=== PATIENT | female | born 1985 | race Caucasian/White ===

== ENCOUNTER → 2018-01-17 14:39 | Outpatient (CLI) | payer BC, SELFPAY ==
[2018-01-17 17:38] LABS: Chlamydia Trachomatis by PCR Negative (Negative); Neisserai gonorrhoeae by PCR Negative (Negative); Probe Check PASS; Sample Adequacy Control PASS; Specimen Processing Control PASS
== END ==
PROVIDERS: Visit Provider Obstetrics & Gynecology
DX: Z11.3 Encounter for screening for infections with a predominantly sexual mode of transmission (principal)
CPT/HCPCS: 87491; 87591

== ENCOUNTER → 2018-02-06 15:43 | Outpatient (CLI) | payer BC, SELFPAY ==
[2018-02-06 17:52] LABS: Color, Urine Yellow (Yellow); Glucose, Dipstick Normal (Normal); Ketone-Dipstick Negative (Negative); Leukocyte Esterase-Dipstick 100 /ul (Negative); Nitrite-Dipstick Negative (Negative); Occult Blood-Urine 25 /ul (Negative); Protein-Dipstick Negative (Negative); Specific Gravity, Urine 1.015 (1.002-1.030); Urine Bilirubin Dipstick Negative (Negative); Urine Clarity Sl. Cloudy (Clear); Urine Urobilinogen Normal (Normal); Urine pH 6.5 (5.0 - 8.0)
[2018-02-06 18:08] LABS: Thyroid Stim Hormone (TSH) 3.51 uIU/mL (0.358-3.74)
[2018-02-06 18:48] LABS: HIV - WCH Non-Reactive (Nonreactive); Rubella IgG 19.4 IU/mL
[2018-02-06 19:12] LABS: Absolute Lymphocyte Count 2.23 X10^3/ul (0.83-4.51); Absolute Neutrophil Count 5.2 X10^3/uL (2.0-7.7); Basophil# 0.04 X10^3/uL; Basophil% 0.5 % (0-1); Eosinophils% 1.2 % (0-5); Hematocrit 36.9 % (37-47); Hemoglobin 12.2 g/dl (12.0-15.0); Lymphocyte # 2.23 X10^3/ul (4.0); Lymphocyte % 27.3 % (19-41); Mean Corp Hgb Conc 33.1 g/gl (32-36); Mean Corpuscular Hgb 29.5 pg (27.0-32.0); Mean Corpuscular Volume 89.1 fL (81-99); Mean Platelet Vol. 10.8 fl (6.2-12.0); Monocyte% 7.4 % (0-10); Neutrophil # 5.17 X10^3/uL (2.7-7.7); Neutrophil % 63.4 % (47-70); Platelet Count 377 K/mm3 (150-450); RBC Distribution Width CV 12.9 % (11.6-14.6); RBC Distribution Width SD 41.6 fl (35.1-43.9); Red Blood Count 4.14 M/mm3 (4.2-5.4); White Blood Count 8.2 K/mm3 (4.4-11.0)
[2018-02-06 19:22] LABS: POSITIVE COUNT NO; POSITIVE DIFFERENTIAL NO; POSITIVE MORPHOLOGY NO
[2018-02-08 11:13] LABS: HEPATITIS B SURFACE AG Negative (Negative); Hep C Antibodies <0.1 s/co ratio (0.0-0.9)
[2018-02-10 03:45] LABS: Prenatal RPR NONREACTIVE (NONREACTIVE)
== END ==
PROVIDERS: Visit Provider Obstetrics & Gynecology
DX: Z34.81 Encounter for supervision of other normal pregnancy, first trimester (principal)
CPT/HCPCS: 36415; 81002; 84443; 85025; 86703; 86762; 86803; 87340

== ENCOUNTER → 2018-05-30 13:38 | Outpatient (CLI) | payer BC, SELFPAY | PROVIDERS: Visit Provider Obstetrics & Gynecology | DX: N39.0 Urinary tract infection, site not specified (principal) | CPT/HCPCS: 87086; 87088 ==

== ENCOUNTER → 2018-06-02 15:19 | Outpatient (CLI) | payer BC, SELFPAY ==
[2018-06-02 16:50] LABS: Glucose Challenge Gest 1H 50g 117 mg/dL (70-140)
[2018-06-02 16:53] LABS: Hematocrit 33.6 % (37-47); Mean Corp Hgb Conc 32.7 g/gl (32-36); Mean Corpuscular Hgb 30.1 pg (27.0-32.0); Mean Corpuscular Volume 92.1 fL (81-99); Mean Platelet Vol. 10.3 fl (6.2-12.0); Platelet Count 296 K/mm3 (150-450); RBC Distribution Width CV 13.1 % (11.6-14.6); RBC Distribution Width SD 44.1 fl (35.1-43.9); Red Blood Count 3.65 M/mm3 (4.2-5.4); White Blood Count 7.8 K/mm3 (4.4-11.0)
[2018-06-02 16:54] LABS: Scan Indicated on CBC? Y/N NO
== END ==
PROVIDERS: PCP Obstetrics & Gynecology; Visit Provider Obstetrics & Gynecology
DX: Z34.82 Encounter for supervision of other normal pregnancy, second trimester (principal)
CPT/HCPCS: 36415; 82950; 85027; 86850

== ENCOUNTER → 2018-08-01 16:40 | Outpatient (CLI) | payer BC, SELFPAY ==
[2018-08-01 20:56] LABS: Group B Strep DNA By PCR Negative (Negative); Internal Control PASS; Probe Check PASS; Specimen Processing Control PASS
== END ==
PROVIDERS: Visit Provider Obstetrics & Gynecology
DX: Z36.85 Encounter for antenatal screening for Streptococcus B (principal)
CPT/HCPCS: 87081; 87653

== ENCOUNTER 2018-08-09 14:45 | Outpatient (CLI) | payer BC, SELFPAY ==
[2018-08-09 15:28] VITALS: BMI 36.5
[2018-08-09 17:41] LABS: Color, Urine Yellow (Yellow); Glucose, Dipstick Normal (Normal); Ketone-Dipstick Negative (Negative); Leukocyte Esterase-Dipstick 500 /ul (Negative); Nitrite-Dipstick Negative (Negative); Occult Blood-Urine Negative /ul (Negative); Protein-Dipstick Negative (Negative); Urine Bilirubin Dipstick Negative (Negative); Urine Clarity Clear (Clear); Urine Urobilinogen Normal (Normal)
--- NOTE | 2018-08-09 20:17 | OB.TRI.NOTE ---
History of Present Illness Date of Service: 08/09/18 Was patient seen by the physician?: No Reason For Visit: R/O LABOR Date of Service: 08/09/18 Final JES: 08/27/18 Final JES Source: US <20 weeks Gestational age: 37 Weeks and 3 Days History of Present Illness: Complains of irregular Vinay Lee type contractions. No signs of SROM no bleeding. Good movement at home. Allergies No Known Allergies Allergy (Unverified 01/19/18 17:46) Laboratory Studies: Laboratory Tests 08/09/18 Range/Units 17:10 Urine Color Yellow (Yellow) Urine Clarity Clear (Clear) Urine pH 8.0 (5.0 - 8.0) Ur Specific [place] 1.010 (1.002-1.030) Urine Protein Negative (Negative) mg/dl Urine Glucose (UA) Normal (Normal) mg/dl Urine Ketones Negative (Negative) mg/dl Urine Occult Blood Negative (Negative) /ul Urine Nitrite Negative (Negative) Urine Bilirubin Negative (Negative) mg/dL Urine Urobilinogen Normal (Normal) mg/dl Ur Leukocyte Esterase 500 H (Negative) /ul Physical Exam General: Alert, Oriented x3, Cooperative, No apparent distress Cardiovascular: Regular rate, Regular Rhythm Lungs: Clear to auscultation, Normal air movement Abdomen: Soft, Non Tender, Non-Distended, Appropriate for Gestational Age Neurological: Neuro grossly intact [employer]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 Signs of labor reviewed.
== END 2018-08-09 18:25 | disposition home or self-care (01) ==
LOC: WPOUT 14:46 → WP 14:46
PROVIDERS: Referring Provider Obstetrics & Gynecology; Visit Provider Obstetrics & Gynecology
DX: O47.1 False labor at or after 37 completed weeks of gestation (principal); Z3A.37 37 weeks gestation of pregnancy
CPT/HCPCS: 59050; 81002; 99218; G0378

== ENCOUNTER 2018-08-21 19:47 | Inpatient (IN) | payer BC, SELFPAY ==
[2018-08-21 20:25] VITALS: BMI 36.8
[2018-08-21] MEDS: Lactated Ringers 1,000 ML 50 ML IV (20:45)
[2018-08-21 21:09] LABS: Hematocrit 34.4 % (37-47); Hemoglobin 11.5 g/dl (12.0-15.0); Mean Corp Hgb Conc 33.4 g/gl (32-36); Mean Corpuscular Hgb 30.1 pg (27.0-32.0); Mean Corpuscular Volume 90.1 fL (81-99); Mean Platelet Vol. 11.3 fl (6.2-12.0); Platelet Count 249 K/mm3 (150-450); RBC Distribution Width CV 13.3 % (11.6-14.6); RBC Distribution Width SD 43.1 fl (35.1-43.9); Red Blood Count 3.82 M/mm3 (4.2-5.4); White Blood Count 6.9 K/mm3 (4.4-11.0)
[2018-08-21 21:18] LABS: Scan Indicated on CBC? Y/N NO
[2018-08-21 21:22] LABS: International Normalized Ratio 0.9; Prothrombin Time (Protime)PT. 12.4 SECONDS (11.7-14.9)
[2018-08-21 21:23] LABS: Partial Thromboplast Time 25.2 Seconds (24.1-36.2)
[2018-08-21] MEDS: miSOPROStol 25 MCG TABLET PO (21:23)
[2018-08-21 21:31] LABS: AST(SGOT) 27 U/L (15-37); Alanine Aminotransfer ALT/SGPT 19 U/L (13-56); Creatinine, Serum 0.61 mg/dL (0.55-1.02); EST Glomerular Filtration Rate 122 mL/min (>60); Est Glom Filt Rate - Afr Amer 148 mL/min (>60); Estimated Creatinine Clearance 125.09 ml/min; Uric Acid 5.4 mg/dL (2.6-6.0)
--- NOTE | 2018-08-22 00:32 | PCM.PN.BLA ---
Progress Note Induction at 39 2/7 wk for PIH AGA approx 8 # by emily ARCHIBALD. No PIH sx in office. LABOR CHART PROGRESS REVIEW Cytotec induction. 1st dose Cytotec listed as 2130 pm 08/21/18 BP 137/93 QS system. LABS: Plts 249 K. UA 5.4 AST/ALT WNL. Cr 0.6 Urine prot:cr pending EFM 120-130s mostly with period of inc FHR baseline to 140-150. Good variability. Accels to 170-190s. Occasional variable decel to 100-120 each lasting less than 20 sec. UCs very irregular. q 6+ minutes Cx in ofc /soft/hi/midposition. A/P: Cytotec induction. PIH 39 3/7 wk today. Continue Cytotec induction . Plan to AROM, and Pitocin prn after Cytotec.
[2018-08-22 00:46] LABS: Protein, Urine (Random) 29.5 mg/dL (<11.9); Protein:Creat Ratio 140 mg/g CRE (0-200)
[2018-08-22] MEDS: miSOPROStol 25 MCG TABLET PO (01:23)
[2018-08-22] MEDS: Mag Hydrox/Al Hydrox/Simeth 30 ML UDC PO (02:10)
--- NOTE | 2018-08-22 05:59 | PCM.PN.OB ---
Subjective: AROM with clear fluid noted. Electronic scalp electrode and intrauterine pressure catheter placed. Reactive heart tones. Will augment with Pitocin if needed starting at 7 AM. Cervix is 2+, 85% effaced, -1 station. Blood pressures okay. Anticipate spontaneous vaginal delivery. - Physical Exam Weight: 228 lb 6.382 oz Body Mass Index (BMI) 36.8 Laboratory Tests Past 24 Hrs 08/21/18 08/21/18 08/21/18 20:45 20:45 20:45 WBC 6.9 RBC 3.82 L Hgb 11.5 L Hct 34.4 L MCV 90.1 MCH 30.1 MCHC 33.4 RDW 13.3 RDW Differential 43.1 Plt Count 249 MPV 11.3 PT 12.4 INR 0.9 APTT 25.2 Creatinine Estim Creat Clear Calc Est GFR (MDRD) Af Amer Est GFR (MDRD) Non-Af Uric Acid AST ALT U Random Total Protein Urine Creatinine Protein/Creatinin Ratio Blood Type A NEGATIVE Antibody Screen NEGATIVE 08/21/18 08/22/18 20:45 00:15 WBC RBC Hgb Hct MCV MCH MCHC RDW RDW Differential Plt Count MPV PT INR APTT Creatinine 0.61 Estim Creat Clear Calc 125.09 Est GFR (MDRD) Af Amer 148 Est GFR (MDRD) Non-Af 122 Uric Acid 5.4 AST 27 ALT 19 U Random Total Protein 29.5 H Urine Creatinine 211.00 Protein/Creatinin Ratio 140 Blood Type Antibody Screen Medical Necessity - Tobacco Use Smoking Status: Never smoker Assessment/Plan All Active Problems Sinusitis (Acute) Pharyngitis (Acute)
--- NOTE | 2018-08-22 07:32 | PCM.PN.BLA ---
Progress Note 39 3/7 wk induction for PIH. Pro:cr ratio wnl. BPs remain a little labile Sitting on toilet Vomiting also IV to S/L Breathing heavily through UCs. EFM 110-120s overnight. with accels. 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 Scalp lead also fell out. A/P: Cytotec. AROM Pitocin on hold 12/02 to nursing staff not available to start this. Advised pt that she needs to reconsider epidural. Very early in labor progress and this uncomfortable. IV fluids bolus to be given , then epidural. Resume IUPC prn to document adequate UCs. Begin pitocin PRN.
--- NOTE | 2018-08-22 07:36 | PN_ITS ---
Progress Note 39 3/7 wk induction for PIH. Pro:cr ratio wnl. BPs remain a little labile Sitting on toilet Vomiting also IV to S/L Breathing heavily through UCs. EFM 110-120s overnight. with accels. UCs irregular and poor order picker q 2-6 mins or so CX; 2+ / 75 / IUPC place prior but this fell out. Scalp lead also fell out. A/P: Cytotec. AROM Pitocin on hold 12/02 to nursing staff not available to start this. Advised pt that she needs to reconsider epidural. Very early in labor progress and this uncomfortable. IV fluids bolus to be given , then epidural. Resume IUPC prn to document adequate UCs. Begin pitocin PRN.
[2018-08-22] MEDS: 0.9% Saline Lock 10 ML Syringe IV (08:32)
[2018-08-22] MEDS: Ondansetron 4 MG/2 ML Vial IV (08:48)
[2018-08-22] MEDS: Lactated Ringers 1,000 ML 50 ML IV (09:27)
[2018-08-22] MEDS: fentaNYL-bupivacaine (epidural) 100 ML BAG EPIDURAL (10:00)
[2018-08-22] MEDS: Oxytocin 30 units/NS 500 ml 30 UNITS/500 ML IV.SOLN 334 UNITS IV (13:00)
[2018-08-22 15:00] VITALS: BP 130/90; PULSE 68; RESP 16; TEMP 36.4
[2018-08-22] MEDS: Naproxen 250 MG Tablet PO (15:57)
[2018-08-22] MEDS: Acetaminophen 500 MG Tablet 1000 MG PO (18:33)
--- NOTE | 2018-08-22 20:39 | PCM.OB.VAG ---
Vaginal Delivery Maternal Presentation: Medically Indicated Induction - PIH 39 2/7 wk induction for PIH Method of Induction: Amniotomy, Cytotec Medical Reason for Induction: Gestational Hypertension Amniotic Membrane Rupture Type: Artificial Amniotic Fluid Description: Clear Final JES: 08/26/18 Gestational age: 39 Weeks and 3 Days Date of Procedure: 08/22/18 Pre-Operative Diagnosis: 39 3/7 wk induction Post-Operative Diagnosis: same. S/P Surgery/ Procedure Performed: Spontaneous Vaginal Delivery Type of Anesthesia: Epidural Description of Procedure: of a ferguson viable female over intact perineum to lacerations. Head delivered DOLLY. Nuchal cord x one reduced at delivery. Shoulders delivered easily. Infant to maternal abdomen with spont vigorous cry. Delayed cord clamping. COrd clamped x two and cut. Routine cord blood for typing collected. PP exam: bilateral first degree vaginal wall lacerations noted. First deg perineal laceration. All repaired under epidural to hemostatic and intact with 3-0 Vicryl . No other lacerations noted. Placenta delivered by spont expulsion, expression. 3V cord, normal appearing , intact with trailing membranes. EBL 350 cc Pt and infant tolerated delivery well. To recovery,s table contidion Ray Leesa counts correct x two. Presentation: Vertex, DOLLY Placental Delivery Description: Spontaneous, Expressed Placenta Disposition: [facility] Cord Vessel Description: 3 Vessels Nuchal Cord Compression: Without compression Cord Entanglement: Around neck x 1, loose Estimated Blood Loss: 350 Infant A gender: Female (1 minute): 9 (5 minute): 9 Episiotomy Description: None Laceration: Midline, Perineal Extension/lac, Vaginal Extension/lac, 1st degree Medications given after delivery: IV Pitocin Complications: None
--- NOTE | 2018-08-22 20:46 | PCM.DCVAG ---
Discharge Diet: No Restrictions Discharge Activity: May Shower, May Take a Tub Bath May resume sexual activity in: 4-6 weeks Additional Activity Instructions:: Nothing in the vagina for 4-6 weeks. You may return to work/school in 6 weeks. Additional Instructions: If you experience any of the following, contact your healthcare provider. Bleeding that soaks a pad every hour for 2 hours Fever 100.4 or higher Unrelieved abdominal pain Problems urinating (including inability to urinate or burning while urinating). Visual changes Severe headache Flu-like symptoms Pain or redness in one of both of your breasts Pain, warmth, tenderness or swelling in your legs, especially the calf area Frequent nausea and vomiting Symptoms of depression or anxiety If you experience any of the following, call 911 or go to the nearest Emergency Room. Chest pain Problems breathing Seizure activity Partial or complete paralysis of a body part, slurred speech, weakness or drooping of the face, or a sudden inability to walk or hold your balance Allergies/Adverse Reactions: Allergies No Known Allergies Allergy (Unverified 08/21/18 20:27) Medications to take at Discharge vitamin,calcium,lvandqtk-vsvk-ijryq acid tablet 1 tab PO QDAY 01/19/18 Cetirizine HCl [Zyrtec] 5 mg PO DAILY 08/09/18 Ranitidine [Zantac] 150 mg PO DAILY PRN PRN 08/09/18 Please Follow Up With: Shraddha Guy MD - [phone] When: Call to make an appointment with your doctor in 6 weeks. Primary Care Physician: Care Physician,No Primary [Primary Care Provider] - Test Results: Test results from this visit will be discussed in further detail at your follow-up appointment, if applicable. Proposed Discharge Date: 08/24/18
--- NOTE | 2018-08-22 20:47 | DCINST_ITS ---
Discharge Diet: No Restrictions Discharge Activity: May Shower, May Take a Tub Bath May resume sexual activity in: 4-6 weeks Additional Activity Instructions:: Nothing in the vagina for 4-6 weeks. You may return to work/school in 6 weeks. Additional Instructions: If you experience any of the following, contact your healthcare provider. * Bleeding that soaks a pad every hour for 2 hours * Fever 100.4 or higher * Unrelieved abdominal pain * Problems urinating (including inability to urinate or burning while urinating). * Visual changes * Severe headache * Flu-like symptoms * Pain or redness in one of both of your breasts * Pain, warmth, tenderness or swelling in your legs, especially the calf area * Frequent nausea and vomiting * Symptoms of depression or anxiety If you experience any of the following, call 911 or go to the nearest Emergency Room. * Chest pain * Problems breathing * Seizure activity * Partial or complete paralysis of a body part, slurred speech, weakness or drooping of the face, or a sudden inability to walk or hold your balance Allergies/Adverse Reactions: Allergies No Known Allergies Allergy (Unverified 08/21/18 20:27) Medications to take at Discharge vitamin,calcium,ienxwlar-ldvt-pzsko acid tablet 1 tab PO QDAY 01/19/18 Cetirizine HCl [Zyrtec] 5 mg PO DAILY 08/09/18 Ranitidine [Zantac] 150 mg PO DAILY PRN PRN 08/09/18 Please Follow Up With: Shraddha Guy MD - [phone] When: Call to make an appointment with your doctor in 6 weeks. Primary Care Physician: Care Physician,No Primary [Primary Care Provider] - Test Results: Test results from this visit will be discussed in further detail at your follow- up appointment, if applicable. Proposed Discharge Date: 08/24/18
[2018-08-22 20:50] VITALS: BP 129/87; PULSE 95; RESP 18; TEMP 36.4
[2018-08-23 00:50] VITALS: BP 146/91; PULSE 85; RESP 18; TEMP 36.1
[2018-08-23] MEDS: Naproxen 250 MG Tablet PO ×2 (01:28→13:15)
[2018-08-23 03:35] VITALS: BP 131/86; PULSE 85; RESP 18; TEMP 35.9
[2018-08-23] MEDS: Acetaminophen 500 MG Tablet 1000 MG PO (03:42)
[2018-08-23 05:47] LABS: Hemoglobin 10.5 g/dl (12.0-15.0); Mean Corp Hgb Conc 32.8 g/gl (32-36); Mean Corpuscular Hgb 29.8 pg (27.0-32.0); Mean Corpuscular Volume 90.9 fL (81-99); Mean Platelet Vol. 10.7 fl (6.2-12.0); Platelet Count 219 K/mm3 (150-450); RBC Distribution Width CV 13.6 % (11.6-14.6); RBC Distribution Width SD 44.1 fl (35.1-43.9); Red Blood Count 3.52 M/mm3 (4.2-5.4); White Blood Count 8.9 K/mm3 (4.4-11.0)
[2018-08-23 05:48] LABS: Scan Indicated on CBC? Y/N NO
--- NOTE | 2018-08-23 08:10 | PCM.PN.OB ---
Subjective: PPD#1 induction at 37 3/7 wk for PIH. Doing well. states very little sleep due to nursing. Minimal pain, no other concerns voiced. - Physical Exam General: Alert, Oriented x3, Cooperative, No apparent distress HEENT: Atraumatic Neck: Supple Abdomen: Soft - Fundus firm NT at 2 cm inferior to umbilicus. Neurological: Cranial nerves II-XII grossly intact Psych/Mental Status: Normal Affect Vital Signs Temp Pulse Resp BP 96.7 F L 85 18 131/86 H 08/23/18 03:35 08/23/18 03:35 08/23/18 03:35 08/23/18 03:35 Oxygen Delivery Method Room Air Weight: 103.6 kg Body Mass Index (BMI) 36.8 Intake and Output for Last 24 Hours 08/21/18 08/22/18 08/23/18 23:59 23:59 23:59 Output Total 2200 / 2200 Balance -2200 / -2200 Laboratory Tests Past 24 Hrs 08/22/18 08/23/18 18:00 05:40 WBC 8.9 RBC 3.52 L Hgb 10.5 L Hct 32.0 L MCV 90.9 MCH 29.8 MCHC 32.8 RDW 13.6 RDW Differential 44.1 H Plt Count 219 MPV 10.7 Screen NEGATIVE Baby's Blood Type O POSITIVE Baby's GAURANG NEGATIVE Medical Necessity - Tobacco Use Smoking Status: Never smoker Assessment/Plan All Active Problems Sinusitis (Acute) Pharyngitis (Acute) PPD#1 PIH induction 37 3/7 wks EGA Stable pp. Continue routine PP care. reviewed edema pp and BPs still a little labile, but not high enough to require any treatment. will likely dischg tomorrow to f/u in ofc in 2 wk for BP check.
[2018-08-23 09:20] VITALS: BP 132/82; PULSE 82; RESP 18; TEMP 36.7; O2SAT 98
[2018-08-23] MEDS: Prenatal Vits Tablet 1 TABLET PO (09:40)
[2018-08-23] MEDS: Loratadine 10 MG Tablet PO (09:41)
[2018-08-23 11:56] VITALS: BP 145/71; PULSE 83; RESP 18; TEMP 36.6; O2SAT 97
[2018-08-23 16:25] VITALS: BP 117/66; PULSE 90; RESP 16; TEMP 36.6; O2SAT 97
[2018-08-23 20:00] VITALS: BP 140/81; PULSE 103; RESP 18
[2018-08-24 02:00] VITALS: BP 138/85; PULSE 99; RESP 18
--- NOTE | 2018-08-24 02:12 | NURSING ---
Discussed cluster feeding with patient. Educated patient that infants need fed on cues. Patient stated she is trying to keep infant on schedule. Advised infant may want to nurse at different times. Patient voiced understanding.
--- NOTE | 2018-08-24 07:46 | PCM.PN.OB ---
Subjective: PPD#2 Induction for PIH 39 + wks. Tired. but sent baby to nursery for 3 hr last night to allow some rest. Baby not latching well on L breast. No other concerns voiced. Objective: Resting in chair - Physical Exam General: Alert, Oriented x3, Cooperative, No apparent distress HEENT: Atraumatic Neck: Supple Abdomen: Soft - Fundus firm NT at 1-2 cm inferior to umbilicus Neurological: Cranial nerves II-XII grossly intact Psych/Mental Status: Normal Affect Comment: Baby O positive. Pt A neg. RhoGAM given. Vital Signs Temp Pulse Resp BP Pulse Ox 97.8 F 99 18 138/85 H 97 08/23/18 16:25 08/24/18 02:00 08/24/18 02:00 08/24/18 02:00 08/23/18 16:25 Oxygen Delivery Method Room Air Weight: 103.6 kg Body Mass Index (BMI) 36.8 Intake and Output for Last 24 Hours 08/22/18 08/23/18 08/24/18 23:59 23:59 23:59 Output Total 2200 / 2200 Balance -2200 / -2200 Medical Necessity - Tobacco Use Smoking Status: Never smoker Assessment/Plan All Active Problems Sinusitis (Acute) Pharyngitis (Acute) PPD#2 PIH induction 37 3/7 wks EGA Stable pp. Dischg today. to f/u in ofc in 2 wk for BP check.
--- NOTE | 2018-08-24 07:49 | PCM.DC.SUM ---
Hospital Course and Treatment Summary of Care Provided: The patient is a 33 year old female at 37 3/7 wk presents for induction of labor 2/2 PIH. Cytotec to AROM Epidural placed per per request. BPs labile but no tx required. Delivered by ferguson female. RhoGAM given: baby O+. course uneventful Home on PPD #2 stable condition. - Physical Exam Vital Signs Temp Pulse Resp BP Pulse Ox 97.8 F 99 18 138/85 H 97 08/23/18 16:25 08/24/18 02:00 08/24/18 02:00 08/24/18 02:00 08/23/18 16:25 Oxygen Delivery Method Room Air Weight: 103.6 kg Body Mass Index (BMI) 36.8 Intake and Output for Last 24 Hours 08/22/18 08/23/18 08/24/18 23:59 23:59 23:59 Output Total 2200 / 2200 Balance -2200 / -2200 Discharge Diet: No Restrictions Discharge Activity: May Shower, May Take a Tub Bath May resume sexual activity in: 4-6 weeks Additional Activity Instructions:: Nothing in the vagina for 4-6 weeks. You may return to work/school in 6 weeks. Home Medications: Medications to take at Discharge vitamin,calcium,qhottawk-nhii-mchhd acid tablet 1 tab PO QDAY 01/19/18 Cetirizine HCl [Zyrtec] 5 mg PO DAILY 08/09/18 Ranitidine [Zantac] 150 mg PO DAILY PRN PRN 08/09/18 Primary Care Physician: Care Physician,No Primary [Primary Care Provider] - Please Follow Up With: Shraddha Guy MD - [phone] Medical Necessity - Tobacco Use Smoking Status: Never smoker Meaningful Use Info Meaningful Use Diagnoses (Choose all that apply): None applicable
[2018-08-24 09:20] VITALS: BP 139/83; PULSE 91; RESP 16; TEMP 36.8; O2SAT 99
[2018-08-24] MEDS: Loratadine 10 MG Tablet PO (10:35)
[2018-08-24] MEDS: Prenatal Vits Tablet 1 TABLET PO (10:35)
[2018-08-24 14:45] VITALS: BP 140/90; PULSE 80; RESP 14; TEMP 36.8; O2SAT 98
== END 2018-08-24 16:50 | disposition home or self-care (01) | DRG 807 ==
PROVIDERS: Obstetrics & Gynecology; Admitting Provider Obstetrics & Gynecology; Referring Provider Obstetrics & Gynecology; Visit Provider Obstetrics & Gynecology
DX: O13.4 Gestational [pregnancy-induced] hypertension without significant proteinuria, complicating childbirth (principal); Z37.0 Single live birth; Z3A.39 39 weeks gestation of pregnancy; O70.0 First degree perineal laceration during delivery; O69.82X0 Labor and delivery complicated by other cord entanglement, without compression, not applicable or unspecified
CPT/HCPCS: 59050; 82565; 82570; 84156; 84450; 84460; 84550; 85027; 85461; 85610; 85730; 86850; 86900; 90384; 99218; J7120; A4216; G0378; J2405; J2790

== ENCOUNTER 2018-12-07 13:40 | Emergency (ER) | payer OTHER, SELFPAY ==
[2018-12-07 13:41] VITALS: BP 133/97; PULSE 105; RESP 14; TEMP 36.8; O2SAT 94; BMI 29.0
--- NOTE | 2018-12-07 14:38 | CM.ED ---
SOCIAL WORK NOTE CASE CONFERENCED WITH ISAMAR FROM THE [facility]SELING [facility]. PT BROUGHT IN BY CRISIS. PER PRODUCTION PATTERN MAKER, PT WILL REQUIRE INPATIENT PSYCH HOSPITALIZATION. UPDATED PHYSICIAN. DARRIN KANG, [employer] HISTORY PROFESSOR, FROG CATCHER.
[2018-12-07 15:11] LABS: Absolute Neutrophil Count 5.3 X10^3/uL (2.0-7.7); Basophil# 0.05 X10^3/uL; Basophil% 0.7 % (0-1); Lymphocyte % 23.5 % (19-41); Mean Corp Hgb Conc 32.5 g/gl (32-36); Mean Corpuscular Hgb 27.9 pg (27.0-32.0); Mean Corpuscular Volume 85.8 fL (81-99); Mean Platelet Vol. 9.6 fl (6.2-12.0); Monocyte# 0.53 X10^3/uL; Monocyte% 6.9 % (0-10); Neutrophil # 5.27 X10^3/uL (2.7-7.7); Neutrophil % 68.6 % (47-70); POSITIVE COUNT NO; POSITIVE DIFFERENTIAL NO; POSITIVE MORPHOLOGY NO; Platelet Count 472 K/mm3 (150-450); RBC Distribution Width CV 13.7 % (11.6-14.6); RBC Distribution Width SD 42.3 fl (35.1-43.9); Red Blood Count 4.66 M/mm3 (4.2-5.4); White Blood Count 7.7 K/mm3 (4.4-11.0)
[2018-12-07 15:32] LABS: ALB/GLOB Ratio 1.1 RATIO (0.9-2.4); AST(SGOT) 12 U/L (15-37); Alanine Aminotransfer ALT/SGPT 21 U/L (13-56); Alkaline Phosphatase 113 U/L (45-117); Anion Gap 10 (5-15); BUN 8 mg/dL (7-18); BUN/Creat Ratio 12.7 RATIO (10-20); Calcium,Total 9.1 mg/dL (8.5-10.1); Chloride 103 mmol/L (98-107); Creatinine, Serum 0.63 mg/dL (0.55-1.02); EST Glomerular Filtration Rate 117 mL/min (>60); Est Glom Filt Rate - Afr Amer 141 mL/min (>60); Estimated Creatinine Clearance 121.12 ml/min; Globulin 3.8 g/dL (2.2-4.2); Glucose 91 mg/dL (74-106); Potassium 4.1 mmol/L (3.5-5.1); Protein, Total 7.8 g/dL (6.4-8.2); Sodium Level 138 mmol/L (136-145)
[2018-12-07 15:36] LABS: Pregnancy, Serum, hCG Quali. NEGATIVE Negative (0-9 Nonpreg)
--- NOTE | 2018-12-07 15:49 | ED.VISSUMM ---
- ER Visit Summary Date of Service: 12/07/18 Chief Complaint: Psychosis History of Present Illness: The patient is a 33 F with a underlying history of anxiety and possibly OCD. She presents for abnormal behavior. She was seen at an outside hospital earlier this week for panic attack symptoms. She was discharged to follow-up as an outpatient. Today she saw the counseling center and then. She was found to have psychotic symptoms and was referred to the emergency department. She was seeing her OB because she gave 3-1/2 months ago. The baby is doing well and her is helping to take care of the baby. The patient does say that she sees [facility]. She denies any suicidal or homicidal thoughts. Physical Examination: Afebrile and vital signs unremarkable except for a heart rate of 105. The patient is alert and oriented. Well kempt. No acute distress, however on discussion with her she does have abnormal thought content. Delusions. No suicidal or homicidal thoughts. Heart regular. Lungs clear. Skin appears normal. Test Results: Labs pending, but so far platelets 472, AST 12, TSH normal. negative. Emergency Department Course and Treatment: Patient was seen by the counselor in the emergency department. We are working on placement. She is medically cleared for transfer to a psychiatric facility. Treatment Plan: As above Disposition: Transfer Impression: 1. Psychosis This note was generated with [employer] dictation software. It may contain incorrect words, spelling, and punctuation that were not noted in review of the chart prior to signing ED Disposition - Plan for ED Patient: Referrals: Care Physician,No Primary [Primary Care Provider] -
[2018-12-07 15:55] LABS: Amphetamine Urine VISTA NEGATIVE (<1000 ng/mL); Barbiturate Urine VISTA NEGATIVE (< 200 ng/mL); Benzodiazepine Urine VISTA NEGATIVE (< 200 ng/mL); Cocaine Urine VISTA NEGATIVE (< 300 ng/mL); Ecstacy Urine VISTA NEGATIVE (< 500 ng/mL); Methadone Urine VISTA NEGATIVE (< 300 ng/mL); PCP Urine VISTA NEGATIVE (< 25 ng/mL); THC Urine VISTA NEGATIVE (< 50 ng/mL); Vista UDS pH Range 7
--- NOTE | 2018-12-07 15:59 | ED.DCSUM_ITS ---
- ER Visit Summary Date of Service: 12/07/18 Chief Complaint: Psychosis History of Present Illness: The patient is a 33 F with a underlying history of anxiety and possibly OCD. She presents for abnormal behavior. She was seen at an outside hospital earlier this week for panic attack symptoms. She was dis charged to follow-up as an outpatient. Today she saw the counseling center and then. She was found to have psychotic symptoms and was referred to the emergency department. She was seeing her OB because she gave 3-1/2 months ago. The baby is doing well and her is helping to take care of the baby. The patient does say that she sees [facility]. She denies any suicidal or homicidal thoughts. Physical Examination: Afebrile and vital signs unremarkable except for a heart rate of 105. The patient is alert and oriented. Well kempt. No acute distress, however on discussion with her she does have abnormal thought content. Delusions. No suicidal or homicidal thoughts. Heart regular. Lungs clear. Skin appears normal. Test Results: Labs pending, but so far platelets 472, AST 12, TSH normal. negative. Emergency Department Course and Treatment: Patient was seen by the counselor in the emergency department. We are working on placement. She is medically cleared for transfer to a psychiatric facility. Treatment Plan: As above Disposition: Transfer Impression: 1. Psychosis This note was generated with [employer] dictation software. It may contain incorrect words, spelling, and punctuation that were not noted in review of the chart prior to signing ED Disposition - Plan for ED Patient: Referrals: Care Physician,No Primary [Primary Care Provider] -
--- NOTE | 2018-12-07 16:55 | ED.RN ---
JAVIER LOWE WITH CRISIS PT IS BEING REFERRED TO [facility]
[2018-12-07 18:37] VITALS: BP 130/84; PULSE 100; RESP 16; O2SAT 98
== END 2018-12-07 19:59 ==
LOC: ED 15:56
PROVIDERS: Emergency Provider Emergency Medicine
DX: F29 Unspecified psychosis not due to a substance or known physiological condition (principal); F41.9 Anxiety disorder, unspecified; F32.9 Major depressive disorder, single episode, unspecified; E28.2 Polycystic ovarian syndrome
CPT/HCPCS: 80053; 80307; 80320; 84443; 84703; 85025; 99281; G0480

== ENCOUNTER → 2018-12-27 13:18 | Outpatient (CLI) | payer OTHER, SELFPAY ==
[2018-12-07 13:41] VITALS: BMI 29.0
[2018-12-27 18:10] LABS: Thyroid Stim Hormone (TSH) 3.01 uIU/mL (0.358-3.74)
== END ==
PROVIDERS: Visit Provider Obstetrics & Gynecology
DX: N92.6 Irregular menstruation, unspecified (principal)
CPT/HCPCS: 36415; 84439; 84443

== ENCOUNTER → 2020-04-30 16:04 | Outpatient (CLI) | payer OTHER, SELFPAY ==
[2019-10-17 12:57] VITALS: BMI 29.0
--- NOTE | 2020-04-30 16:18 | US_ITS ---
STUDY: FIRST TRIMESTER OBSTETRICAL ULTRASOUND REASON FOR EXAM: Female, 34 years old DATING LMP: 03/11/2020 TECHNIQUE: Transvaginal TECHNICAL QUALITY: Adequate. PRIOR ULTRASOUND: 08/15/2013 FINDINGS: There is visualization of a single gestational sac in a normal intrauterine position. The mean sac diameter (MSD) measures 1.38 cm, indicating an estimated gestational age (EGA) of 6 weeks, 1 days. The gestational sac shape is within normal limits. There is a visualized yolk sac. The yolk sac measures 2.6 mm. The placenta is non-visualized. There is visualization of a live embryo. The crown-rump length (CRL) measures 0.58 cm, indicating an estimated gestational age (EGA) of 6 weeks, 3 days. There is demonstrated cardiac activity with a heart rate of 111 bpm. The estimated gestation age (EGA) by LMP is 7 weeks, 1 days. The estimated date of delivery (JES) by LMP is 12/16/2020. The estimated gestation age (EGA) by US is 6 weeks, 3 days. The estimated date of delivery (JES) by US is 12/22/2020. The uterus measures 9.5 x 7.1 x 5.3 cm. There is no demonstrated uterine fibroid. The cervix is closed. The right ovary measures 4.5 x 2.1 x 2.4 cm.. There is a 7.0 x 4.4 x 5.9 cm right ovarian cyst. There is no visualized right adnexal mass or complex lesion. The left ovary measures 3.3 x 2.8 x 2.5 cm.. There is a 2.1 x 1.4 x 1.4 cm left ovarian cyst. There is no visualized left adnexal mass or complex lesion. There is no fluid in the cul de sac. There are prominent right adnexal vessels. US/Init OB < 14Wks US IMPRESSION: Single viable intrauterine of approximately 6 weeks 3 days gestational age by crown-rump length measurement. Bilateral ovarian cysts. Electronically Signed: Lamont Barroso MD at 19:07 EDT , Service support ,
== END ==
PROVIDERS: Referring Provider Specialist; Visit Provider Specialist
DX: Z36.87 Encounter for antenatal screening for uncertain dates (principal)
CPT/HCPCS: 76801

== ENCOUNTER → 2020-08-06 12:10 | Outpatient (CLI) | payer OTHER, SELFPAY ==
[2019-10-17 12:57] VITALS: BMI 29.0
--- NOTE | 2020-08-06 12:20 | US_ITS ---
STUDY: SECOND AND THIRD TRIMESTER OBSTETRICAL ULTRASOUND REASON FOR EXAM: Female, 34 years old anatomy LMP: 03/17/2020 TECHNIQUE: Transabdominal TECHNICAL QUALITY: Adequate. PRIOR ULTRASOUND: None. FINDINGS: There is a single intrauterine fetus. The fetus is in a transverse lie with the head on the maternal right side. There is demonstrated cardiac activity with a heart rate of 145 bpm. There is a normal amniotic fluid volume. The placenta is anterior in location and is not low lying. There are Grade 0 placental changes. The cervix measures 5.2 cm in length. The bilateral adnexal regions are normal. BIOMETRY: BPD: 5.1: 21 weeks, 3 days HC: 18.1: 20 weeks, 3 days AC: 16.8: 21 weeks, 5 days FL: 3.5: 21 weeks, 0 days CI: FL/BPD: FL/HC: FL/AC: HC/AC: age by current US: 20 weeks, 6 days. JES by current US: 12/18/2020. Estimated weight: 420 grams, +/- 62 grams, 89 %. age by prior US: 20 weeks, 2 days. JES by prior US: 12/22/2020. Age by LMP: 20 weeks, 2 days. JES by LMP: 12/22/2020. ANATOMY: Gender: Male Cranium: Normal lateral ventricles. Normal choroid plexus. Normal cerebellum. Normal cisterna magna. Normal face, nose and lips. Chest: Normal 4-chamber heart. Abdomen/Pelvis: Normal diaphragm. Normal stomach. Normal abdominal wall. Normal cord insertion. Normal 3 vessel cord. Normal kidneys. Normal bladder. Spine: Normal cervical spine. Normal thoracic spine. Normal lumbar spine. Normal sacrum. Extremities: Normal bilateral upper extremities. Normal bilateral lower extremities. US/OB Anatomy Scan IMPRESSION: Single live fetus in a transverse presentation. No demonstrated anatomic abnormality. Placenta is grade 0 and is not low-lying. Cervix is closed. age by current US: 20 weeks, 6 days. JES by current US: 12/18/2020. Estimated weight: 420 grams, +/- 62 grams, 89 %. Electronically Signed: Moises Magallon MD at 23:41 EDT , Service support ,
== END ==
PROVIDERS: Referring Provider Specialist
DX: Z36.3 Encounter for antenatal screening for malformations (principal)
CPT/HCPCS: 76805

== ENCOUNTER 2021-02-23 18:44 | Emergency (ER) | payer BC, SELFPAY ==
[2019-10-17 12:57] VITALS: BMI 29.0
[2021-02-23 18:45] VITALS: BP 148/97; PULSE 101; RESP 15; TEMP 36.3; BMI 31.4
[2021-02-23 19:49] LABS: Color, Urine Straw (Yellow); Glucose, Dipstick Normal (Normal); Ketone-Dipstick Negative (Negative); Leukocyte Esterase-Dipstick Negative /ul (Negative); Nitrite-Dipstick Negative (Negative); Occult Blood-Urine Negative /ul (Negative); Protein-Dipstick Negative (Negative); Specific Gravity, Urine 1.005 (1.002-1.030); Urine Bilirubin Dipstick Negative (Negative); Urine Clarity Clear (Clear); Urine Urobilinogen Normal (Normal)
[2021-02-23 19:50] LABS: Bacteria 0 SEEN /hpf (None Seen); Mucous, Urine 0 SEEN /hpf (<or=2+); Red Blood Cells-Urine 0 SEEN /hpf (0-5); White Blood Cells 0 SEEN /hpf (0-5)
[2021-02-23 19:56] LABS: Squamous Epithelial Cells - UA 0-5 SEEN /hpf (5-10)
[2021-02-23 20:22] LABS: Absolute Lymphocyte Count 2.24 X10^3/uL (0.83-4.51); Basophil# 0.06 X10^3/uL; Basophil% 0.7 % (0-1); Eosinophil# 0.03 X10^3/uL; Eosinophils% 0.4 % (0-5); Hematocrit 40.3 % (37-47); Hemoglobin 12.8 g/dL (12.0-15.0); Lymphocyte # 2.24 X10^3/ul (0.83-4.51); Lymphocyte % 27.9 % (19-41); Mean Corp Hgb Conc 31.8 g/dL (32-36); Mean Corpuscular Hgb 26.5 pg (27.0-32.0); Mean Corpuscular Volume 83.4 fL (81-99); Mean Platelet Vol. 10.3 fl (6.2-12.0); Monocyte# 0.66 X10^3/uL; Monocyte% 8.2 % (0-10); NRBC Flagged by Analyzer 0 % (0-5); Neutrophil % 62.4 % (47-70); Platelet Count 346 K/mm3 (150-450); RBC Distribution Width CV 15.7 % (11.6-14.6); RBC Distribution Width SD 47.5 fl (35.1-43.9); Red Blood Count 4.83 M/mm3 (4.2-5.4)
[2021-02-23 20:55] LABS: Internal QC Validated? YES +Cl - CLEAR BKGD; Pregnancy, Serum, hCG Quali. NEGATIVE Negative
[2021-02-23 21:01] LABS: Alcohol, Blood (Medical)-Serum < 3.0 mg/dL
[2021-02-23 21:03] LABS: Anion Gap 7 (5-15); BUN 9 mg/dL (7-18); BUN/Creat Ratio 11.6 RATIO (10-20); Chloride 105 mmol/L (98-107); Creatinine, Serum 0.78 mg/dL (0.55-1.02); EST Glomerular Filtration Rate 91 mL/min (>60); Est Glom Filt Rate - Afr Amer 110 mL/min (>60); Estimated Creatinine Clearance 96.04 ml/min; Glucose 87 mg/dL (74-106); Potassium 3.4 mmol/L (3.5-5.1); Sodium Level 138 mmol/L (136-145)
[2021-02-23 21:12] VITALS: RESP 14
[2021-02-23 21:12] LABS: Amphetamine Urine VISTA NEGATIVE (<1000 ng/mL); Barbiturate Urine VISTA NEGATIVE (< 200 ng/mL); Benzodiazepine Urine VISTA NEGATIVE (< 200 ng/mL); Cocaine Urine VISTA NEGATIVE (< 300 ng/mL); Ecstacy Urine VISTA NEGATIVE (< 500 ng/mL); Methadone Urine VISTA NEGATIVE (< 300 ng/mL); PCP Urine VISTA NEGATIVE (< 25 ng/mL); THC Urine VISTA NEGATIVE (< 50 ng/mL); Vista UDS pH Range 6
--- NOTE | 2021-02-23 21:38 | ED.VIS.PSYCH ---
History of Present Illness Chief Complaint: Mental Health Informant: Patient, Significant Other Narrative: Patient is a 35-year-old female with history of depression as well as psychosis presenting with increased paranoia. of the patient is the bedside. Apparently she is 10 weeks . She has been displaying increased paranoia and confusion. Yesterday she flushed her wedding rings down the toilet because she states she was afraid. Today she was running outside with the baby in her underwear. Patient felt that they were not safe at home and was trying to run safety. 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 She drove around for some time and ultimately went to her old jew. Patient follows with Naina through [facility]. She was previously on Zoloft but is no longer on it. After the of her older daughter she was hospitalized at [facility] for similar circumstances. Past Medical History - Allergies and Home Meds Allergies/Adverse Reactions: Allergies No Known Allergies Allergy (Verified 02/23/21 18:48) Primary Care Physician: Care Physician,No Primary [Primary Care Provider] - Past Medical History: - - Depression Surgical History: noncontributory Lives: Spouse/ Significant Other, With Family Smoking Status: Never smoker Review of Systems General: Denies: Chills, Fever, Sweats Eyes: Denies: Visual changes - bilaterally, Diplopia ENT: Denies: Rhinorrhea, Sore throat Cardiovascular: Denies: Chest pain, Palpitations Respiratory: Denies: Dyspnea, Cough, Dyspnea on exertion Gastrointestinal: Denies: Abdominal pain, Nausea, Vomiting, Diarrhea, Melena, Hematochezia Genitourinary: Denies: Dysuria, Hematuria, Frequency Musculoskeletal: Denies: Back pain, Extremity Pain Skin: Denies: Rash, Wounds Neurological: Denies: Headache, Weakness, Numbness Psych: Reports: Anxiety, - - Paranoia. Denies: Suicidal thoughts, Suicidal ideations Physical Exam Vital Signs/Narrative: Vital Signs Temp Pulse Resp BP 02/23/21 21:12 14 02/23/21 18:45 97.3 F L 101 H 15 148/97 H Inital Vital Signs reviewed: Yes General: Well nourished, Well developed Head: Normocephalic, Atraumatic Eyes: Perrl, EOMI ENT: Moist mucous membranes, No rhinorrhea Neck: Supple, Nontender Cardiovascular: Regular rate, Regular rhythm, No murmurs Respiratory: No distress, CTA bilaterally, Chest nontender Abdomen: Soft, Nontender, Nondistended, Normal bowel sounds Back: Nontender, Normal Inspection Extremities: Nontender, No Edema Skin: Normal color, No rash Neurological: Alert, Oriented x3, Cranial nerves II-XII grossly intact, Normal Strength, Normal Sensation Psych: Pressured Speech, Paranoid Ideation, - - Patient has slightly rambling speech with paranoia. She fixates on things not feeling safe. She does not appear to have good insight into her presentation.. Negative for: Hallucinations, Delusions Diagnostic/Tx/Re-eval Laboratory Data 02/23/21 02/23/21 02/23/21 19:40 20:05 20:05 WBC 8.0 RBC 4.83 Hgb 12.8 Hct 40.3 MCV 83.4 MCH 26.5 L MCHC 31.8 L RDW Std Deviation 47.5 H RDW Coeff of Robert 15.7 H Plt Count 346 MPV 10.3 Immature Gran % (Auto) 0.400 Neut % (Auto) 62.4 Lymph % (Auto) 27.9 Richardson % (Auto) 8.2 Eos % (Auto) 0.4 Baso % (Auto) 0.7 Absolute Neuts (auto) 5.0 Absolute Lymphs (auto) 2.24 Nucleated RBC % 0 Sodium 138 Potassium 3.4 L Chloride 105 Carbon Dioxide 26.0 Anion Gap 7 BUN 9 Creatinine 0.78 Estim Creat Clear Calc 96.04 Est GFR (MDRD) Af Amer 110 Est GFR (MDRD) Non-Af 91 BUN/Creatinine Ratio 11.6 Glucose 87 Calcium 9.0 Serum , Qual Urine Color Straw Urine Clarity Clear Urine pH 7.0 Ur Specific [place] 1.005 Urine Protein Negative Urine Glucose (UA) Normal Urine Ketones Negative Urine Occult Blood Negative Urine Nitrite Negative Urine Bilirubin Negative Urine Urobilinogen Normal Ur Leukocyte Esterase Negative Urine RBC 0 SEEN Urine WBC 0 SEEN Ur Squamous Epith Cells 0-5 SEEN Urine Bacteria 0 SEEN Urine Mucus 0 SEEN Urine Opiates Screen Urine Methadone Screen Ur Barbiturates Screen Ur Phencyclidine Scrn Ur Amphetamines Screen U Methamphetamin-MDMA U Benzodiazepines Scrn Urine Cocaine Screen U Cannabinoids Screen Ur Drug Screen Comment Ethyl Alcohol 02/23/21 02/23/21 02/23/21 20:05 20:05 20:10 WBC RBC Hgb Hct MCV MCH MCHC RDW Std Deviation RDW Coeff of Robert Plt Count MPV Immature Gran % (Auto) Neut % (Auto) Lymph % (Auto) Richardson % (Auto) Eos % (Auto) Baso % (Auto) Absolute Neuts (auto) Absolute Lymphs (auto) Nucleated RBC % Sodium Potassium Chloride Carbon Dioxide Anion Gap BUN Creatinine Estim Creat Clear Calc Est GFR (MDRD) Af Amer Est GFR (MDRD) Non-Af BUN/Creatinine Ratio Glucose Calcium Serum , Qual NEGATIVE Urine Color Urine Clarity Urine pH Ur Specific [place] Urine Protein Urine Glucose (UA) Urine Ketones Urine Occult Blood Urine Nitrite Urine Bilirubin Urine Urobilinogen Ur Leukocyte Esterase Urine RBC Urine WBC Ur Squamous Epith Cells Urine Bacteria Urine Mucus Urine Opiates Screen NEGATIVE Urine Methadone Screen NEGATIVE Ur Barbiturates Screen NEGATIVE Ur Phencyclidine Scrn NEGATIVE Ur Amphetamines Screen NEGATIVE U Methamphetamin-MDMA NEGATIVE U Benzodiazepines Scrn NEGATIVE Urine Cocaine Screen NEGATIVE U Cannabinoids Screen NEGATIVE Ur Drug Screen Comment Ethyl Alcohol < 3.0 Patient is medically cleared. She had increased paranoid behavior and is concerning for an acute psychosis. I do think she benefit from psychiatric evaluation. I do not think she is safe to go home as I fear for the safety of herself as well as her children. Patient will be pink slip. She will require emergent psychiatric evaluation. ED Disposition - Plan for ED Patient: Diagnosis: Paranoia Referrals: Care Physician,No Primary [Primary Care Provider] -
--- NOTE | 2021-02-23 22:07 | NURSING ---
CALLED CRISIS AT [phone]
[2021-02-23 23:32] VITALS: BP 144/102; PULSE 102; RESP 16; O2SAT 97
[2021-02-24 00:14] VITALS: RESP 16
--- NOTE | 2021-02-24 08:45 | ED.RN ---
SEE DOWNTIME DOCUMENTATION
== END 2021-02-24 02:45 | disposition home or self-care (01) ==
PROVIDERS: Emergency Provider Emergency Medicine
DX: F22 Delusional disorders (principal); F32.9 Major depressive disorder, single episode, unspecified
CPT/HCPCS: 80048; 80307; 81001; 82077; 84703; 85025; 87426; 99281; 99282

== ENCOUNTER 2021-03-09 09:45 | Outpatient (RCR) | payer BC, SELFPAY ==
--- NOTE | 2021-03-09 09:10 | BH.SGPN.GN ---
Behaviors/Verbalizations/Mental Status: [] Eye contact is good. Motor activity is appropriate. Appearance is casual. Speech is rapid. Mood is anxious. Affect is congruent. Thoughts are linear and logical. No evidence of psychosis. Reviewed daily check in sheet and no reports of suicidal ideations or intent. Client Response/Progress/Benefit: [] Pt was an active participant in group discussion on blame. Attentive. Provided appropriate feedback to peers. This was pt's first day in IOP. She shared her recent hospitalization for psychosis and the benefits of the facility that she went to. Shared that she feels better after discharge however continues to report challenges with restlessness, poor sleep, and anger. She reports that she had a brief hallucination Tuesday night which upset her. After awhile she did disclose this to her support rather than hide it. Her emotion for today is relaxed and less angry. No progress noted as this was pt's first day. Benefited from group support, encouragement, and feedback. Will continue in IOP to maintain stability and prevent decompensation. Narrative Note: []
--- NOTE | 2021-03-09 10:00 | BH.COMM_ITS ---
Communication Note - Communication with Client Communication Note: completed initial paperwork. No significant changes since pre-admission paperwork. Completed [place] [facility]icide Screening. Low risk. No SI since 2006
--- NOTE | 2021-03-09 10:15 | BH.SGPN.GN ---
Behaviors/Verbalizations/Mental Status: []Client alert and oriented, casually dressed and groomed. Eye contact good. Motor activity appropriate. Speech within normal limits. Affect congruent, mood anxious. Thoughts linear, logical, no signs of hallucinations or delusions. Client Response/Progress/Benefit: []Pt new to IOP group. Remained actively engaged in group discussion, taking notes, and listened attentively to others. Pt connected with quote stating that she could relate to the impact of listening to respond rather than understand in regard to addressing conflict. Expressed experiencing this from others at various points in own life. Reported she struggles with properly managing conflict because she tends to struggle with making decisions and not wanting to upset others. Pt stated anxiety and past negative experiences can impact conflict style as you may naturally end up avoiding as a result. Pt attentive and engaged during psychoeducation about different conflict styles (avoidant, accommodating, cooperative, and competing). Pt identified using accommodating a lot in her past but has been working to improve in this area and finds she is mor collaborative now. Notes struggling at times with being avoidant as well. Seemed to benefit from increased awareness of the different conflict styles. Pt to continue IOP to continue to promote use of healthy coping skills, improve anxiety management skills, and prevent decompensation. Narrative Note: []
--- NOTE | 2021-03-09 11:21 | BH.SGPN.GN ---
Behaviors/Verbalizations/Mental Status: []Client alert and oriented, casually dressed and neatly groomed. Eye contact good. Motor activity appropriate. Speech within normal limits. Affect congruent, mood euthymic and anxious. Thoughts linear, logical, no signs of hallucinations or delusions. Client Response/Progress/Benefit: []Client engaged in session AEB contributing input to discussion, providing personal examples, and taking notes throughout. Client providing feedback throughout discussion reviewing remaining conflict resolution styles. Expressed struggling to communicate with others when they come across as overly competing and can shut down as a result. Contributed to discussion on strategies for more effectively managing conflict in own life. Client identified wanting to be more consistent in use of collaborative approaches to conflict rather than just agreeing to avoid it. Shared she could begin working on doing so by improving upon his self-awareness and continue using her as support in doing so. Appeared to benefit from learning strategies to better manage conflict. Will continue IOP tx to continue to improve self-confidence, reduce depressive and anxious symptoms, and improve daily functioning. Narrative Note: []
--- NOTE | 2021-03-10 09:02 | BH.SGPN.GN ---
Behaviors/Verbalizations/Mental Status: []Pt eye contact good, casually dressed, motor activity appropriate, speech normal rate and tone, mood euthymic, congruent affect, thoughts linear and intact, no evidence of delusions or hallucinations. Patient indicated no suicidal ideation, plan or intent on daily symptom tracker. Client Response/Progress/Benefit: [] Patient engaged participant as evidenced by sharing thoughts and feelings and listening attentively to peers. Patient reported yesterday her mood was improved compared to the weekend. Patient stated she experienced anger on Tuesday and Tuesday night but felt more equipped in order to manage the anger. Patient reported she was able to do some deep breathing and talking with her to manage the anger. Patient reported while she is in IOP she would like to work on not being able to identify her anger triggers. Patient seemed to benefit from support from peers. Patient to continue IOP to stabilize moods, improve daily functioning, and prevent decompensation. Narrative Note: []
--- NOTE | 2021-03-10 10:10 | BH.SGPN.GN ---
Behaviors/Verbalizations/Mental Status: []Eye contact is good. Motor activity is appropriate. Appearance is casual. Speech is Appropriate. Mood is anxious, euthymic. Affect is congruent. Thoughts are linear and logical. No evidence of psychosis. Client Response/Progress/Benefit: [] Pt was an engaged participant in group discussion and activity AEB providing input and encouragement, as well as taking notes throughout. Worked with group to process quote, indicating that ?this is really timely because we are all taking a big step in doing the program and taking care of ourselves which deserves some credit?. Worked with group members to identify the benefits of setting goals which include: sense of accomplishment, builds self-esteem, increases motivation, holds us accountable, and helps to measure progress. Worked with peers to identify the barriers to setting goals or things that keep us from accomplishing goals. Pt identified personal barrier to achieving goals as perfectionistic thinking and taking on too much at once. Attentive during psycho-education on developing SMART (Specific, Measurable, Achievable, Realistic, Timely) goals. Benefited from education on the benefits of goal-setting and increased insight into skills to set realistic and attainable goals. Narrative Note: []
--- NOTE | 2021-03-10 11:10 | BH.SGPN.GN ---
Behaviors/Verbalizations/Mental Status: []Client alert and oriented, neatly dressed and groomed. Eye contact good. Motor activity appropriate. Speech within normal limits. Affect constricted, mood anxious. Thoughts linear, logical, no signs of hallucinations or delusions. Client Response/Progress/Benefit: []Client was engaged during discussion, did well to complete activity and process with the group. Client was willing to complete the worksheet in which she was challenged to develop a personal SMART goal. Client chose the goal to improve self-care by journaling for 30 minutes 2-3 times in the next week. Client stated this will benefit her as it will fill her ?cup? and lift her mind from the heaviness she carries. Client identified barriers which included: busy schedule, being too focused on others, forgetfulness, negative thinking, and guilt. Client worked with her partner in group to identify solutions for her barriers, and they were able to identify a solution for each barrier. Benefited from this group by developing a short-term SMART goal related to mental health. Client will continue IOP tx to prevent decompensation, improve overall functioning, and monitor moods. Narrative Note: []
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
--- NOTE | 2021-03-11 13:33 | BH.DR.ITP ---
Initial Treatment Plan Patient Information Visit Information: ADMISSION DATE: EXPECTED LOS: 4-6 weeks Problems/Symptoms Problem #1:: Mood instability: Leanne possibly to be followed by depression Symptom:: Grandiosity, decreased sleep, racing thoughts, history of hallucinations, delusions and disorganized behavior Symptom:: Fleeting feelings of depression over the past few days only. Problem #2:: Anxiety Symptom:: Rumination, worry, obsession tendencies, avoidance, hypervigilance, flashbacks.
--- NOTE | 2021-03-12 09:00 | BH.SGPN.GN ---
Behaviors/Verbalizations/Mental Status: []client alert and oriented, neatly dressed and groomed. Eye contact good. Motor activity restless. Speech within normal limits. Affect congruent, mood euthymic. Thoughts linear, logical, no signs of hallucinations or delusions. Reviewed client's symptom tracker, no SI, plan, or intent as of 03/12/21. Client Response/Progress/Benefit: []Client responded well to session, short check-in but positive. Client reports feeling capable this morning. Client stated she used opposite action and went to a mother's group and did a craft there. Client shared she did not want to go, but she was glad she got out of the house to practice self-care. Client also set a boundary via text message which was positive for client. Client shared she struggles with acceptance of her current functioning at times and client also struggles with setting boundaries. Appeared to benefit from group support and reflecting on her wins. Progress noted as client has been practicing coping skills outside of IOP, however, client can continue to work on reinforcing boundaries and practicing self-care. Will continue IOP tx to prevent decompensation, improve daily functioning, and increase self-care. Narrative Note: []
--- NOTE | 2021-03-12 11:15 | BH.SGPN.GN ---
Behaviors/Verbalizations/Mental Status: []Client alert and oriented, neatly dressed and groomed. Eye contact good. Motor activity appropriate. Speech within normal limits. Affect congruent, mood euthymic. Thoughts linear, logical, no signs of hallucinations or delusions. Client Response/Progress/Benefit: []Client responded well to session AEB providing input at times during discussion, engaging in activity, and listening attentively to peers. Client contributed during psychoeducation on the change process and different emotions in each stage of change. Client reports belief she is currently in between preparation and action stages of change. Client stated she feels more in the preparation stage by making small changes and steps towards where she wants to be in life. Client stated journaling is something she would like to try to help her get fully into stage 4 because self-expression and reflection will be beneficial. Appeared to benefit from identifying what stage of change client is in and identifying strategies to overcome barriers. Will continue IOP tx to stabilize moods, increase healthy coping and prevent decompensation.
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
--- NOTE | 2021-03-12 13:46 | BH.MTP_ITS ---
Master Treatment Plan - Patient Information Program Physician:: Dr. Kristen Lucas Primary Therapist:: Zofia VILLARREAL - Psychiatric Diagnoses Psychiatric Diagnoses:: Bipolar 1 disorder, manic, severe with psychotic features (F 31.21); social anxiety disorder (F 40.1); PTSD Diagnosis Code(s):: F - Estimated LOS Estimated LOS (in weeks):: 6 Problem/Goal #1 - Problem/Goal #1 Stated Goal:: Client will increase mood stability, reduce negative thinking, and improve daily functioning. Description of Barriers: Client has a history of trauma that continues to impact client. Client admits to negative core beliefs, perfectionistic tendencies, and difficulty setting boundaries due to fear of rejection. Functional Impact: Client is a 35-year-old female with a history of Bipolar disorder and depression. Client was admitted to [facility] from 02/24/21- 03/02/21 due to disorganized thoughts, hallucinations, temple preoccupation, and delusions. History of post- psychosis with a previous admission for similar symptoms after her first . Prior to admission, client was running outside naked with her child as client believed her was trying to kill her and was religiously preoccupied. Per 's report, client's symptoms started around 02/12/21 and got progressively worse. Since admission, client's symptoms have stabilized AEB no signs of disorganized speech, hallucinations or delusions. Client continues to report significant anxiety, shahnaz lt, obsessive thoughts, and ruminations. Client is functioning better now since discharge, but she is fearful of relapse. Goal Relevant Strengths/Supports: Client has insight to her symptoms, is intelligent, and has support from her and friends. Client also is connected with outpatient mental health services. - Objectives Objective #1 Stated Objective: Client will learn and utilize 2-3 healthy coping strategies to better manage depressive and bipolar symptoms as shown by reduced DSM-5 scores. Interventions: Through group and individual sessions, therapist will help client identify triggers and warning signs of depression and emotional dysregulation including emotional, physical, and behavioral changes. Therapist will teach client various coping skills to manage her symptoms and give client tangible resources to use to regulate emotions. Therapist will use cognitive restruct uring techniques and help client gain awareness of negative thoughts that reinforce depressive cycles. Therapist will help client incorporate behavioral activation and assist client in setting SMART goals. Discharge Criteria: Client will have met this goal when she can report learning and using at least 2 coping skills to manage depressive and bipolar symptoms and show a reduction in DSM-5 symptoms. Target Date: 04/27/21 Review Date: 04/06/21 Status: open Objective #2 Stated Objective: Client will identify at least 2-3 negative self-talk messages used to reinforce depression and replace thoughts with positive, realistic messages. Interventions: Therapist will help client identify distorted, negative beliefs about self and replace with more realistic, affirmative messages. Therapist will use CBT to help client increase insight to the connection between thoughts, emotions, and behaviors. Therapist will encourage client to practice thought challenging and self-compassion. Discharge Criteria: Client will have achieved this goal when can verbalize at least 2 negative self-talk messages and effectively replace those thoughts with affirmative messages. Target Date: 04/27/21 Review Date: 04/06/21 Status: open Problem/Goal #2 - Problem/Goal #2 Stated Goal:: Client will increase emotional regulation and reduce intensity and duration of anxiety symptoms. Description of Barriers: Client has a history of trauma that continues to impact client. Client admits to negative core beliefs, perfectionistic tendencies, and difficulty setting boundaries due to fear of rejection. Functional Impact: Client is a 35-year-old female with a history of Bipolar disorder and depression. Client was admitted to [facility] from 02/24/21- 03/02/21 due to disorganized thoughts, hallucinations, temple preoccupation, and delusions. History of post- psychosis with a previous admission for similar symptoms after her first . Prior to admission, client was running outside naked with her child as client believed her was trying to kill her and was religiously preoccupied. Per 's report, client's symptoms started around 02/12/21 and got progressively worse. Since admission, client's symptoms have stabilized AEB no signs of disorganized speech, hallucinations or delusions. Client continues to report significant anxiety, guilt, obsessive thoughts, and ruminations. Client is functioning better now since discharge, but she is fearful of relapse. Goal Relevant Strengths/Supports: Client has insight to her symptoms, is intelligent, and has support from her and friends. Client also is connected with outpatient mental health services. - Objectives Objective #1 Stated Objective: Client will identify 2-3 anxiety and irritability triggers and 2 calming coping skills to use to manage these symptoms as shown by decreased DSM-5 cross-cutting score. Interventions: Therapist will help client increase awareness of anxiety and crisis triggers and educate client on ways anxiety impacts overall health. Therapist will teach client various calming strategies to promote emotional regulation and reduction of anxiety. Therapist will assist client in identifying warning signs and teach client techniques to reduce, remove, or accept stressors to reduce anxiety. Therapist will discuss the importance of self-care, healthy relationships, and boundaries. Discharge Criteria: Client will have accomplished this goal when can report at least 2 triggers for anxiety and state using 2 calming strategies to manage symptoms. Additionally, client will have accomplished this goal when her DSM-5 cross-cutting scores show a decrease in anxiety and anger. Target Date: 04/27/21 Review Date: 04/06/21 Status: open Objective #2 Stated Objective: Client will identify 2-3 cognitive distortions that lead to rumination and learn 2-3 ways to manage these thoughts to better manage anxiety. Interventions: Therapist will provide education on the most common cognitive distortions and teach client the connection between thoughts, emotions, and feelings. Therapist will assist client in identifying, challenging, and replacing dysfunctional thoughts with positive, more realistic thoughts. Therapist will use CBT and DBT techniques to help client gain awareness of thinking errors and learn how to more effectively handle negative thoughts. Discharge Criteria: Client will have accomplished this goal when can identify at least 2 cognitive distortions and at least 2 coping skills to manage negative thoughts. Target Date: 04/27/21 Review Date: 04/06/21 Status: open
--- NOTE | 2021-03-16 09:00 | BH.SGPN.GN ---
Behaviors/Verbalizations/Mental Status: [] Eye contact is good. Motor activity is appropriate. Appearance is neat. Speech is Appropriate. Mood is euthymic. Affect is full. Thoughts are linear and logical. No evidence of psychosis. Reviewed daily check in sheet and no reports of suicidal ideations or intent. Client Response/Progress/Benefit: [] Pt was an active participant in group discussion. Attentive. Provided appropriate feedback. Emotion for today is magical. Shared that she has been completing daily goals which have been given to her via an shahnaz. She beleives that these small daily goals have been beneficial to her mental health and overall sense of accomplishment. She reported being more tired over the weekend and Wanting to sleep a lot. Able to see that this may be a good thing for her Bipolar as sleep is important. Progress noted per pt report. Benefited from group support, encouragement, and feedback. Will continue in IOP to prevent decompensation, learn and implement healthy skills, and stabilize mood. Narrative Note: []
--- NOTE | 2021-03-16 10:05 | BH.SGPN.GN ---
Behaviors/Verbalizations/Mental Status: []Client alert and oriented, neatly dressed and groomed. Eye contact good. Motor activity appropriate. Speech within normal limits. Affect congruent, mood euthymic. Thoughts linear, logical, no signs of hallucinations or delusions. Client Response/Progress/Benefit: []Pt was an active participant, taking notes and contributing to discussion. Connected with quote and shared forces in life are like ?opposites such as light and dark.? Attentive during psychoeducation. Pt worked with group to identify forces that can impact growth and overall mental health. Pt was doing a lot of nodding during the metaphor and helped the group identify internal and external forces. Group discussed examples of positive forces such as healthy coping skills and insight, as well as negative forces such as distorted thoughts. Pt benefited from increased awareness of the impact positive and negative forces can have on mental health and personal growth. Will continue IOP tx to prevent decompensation, increase self-awareness, and combat distortions. Narrative Note: []
--- NOTE | 2021-03-16 11:06 | BH.SGPN.GN ---
Behaviors/Verbalizations/Mental Status: []Client alert and oriented, casually dressed and groomed. Eye contact good. Motor activity appropriate. Speech WNL. Affect congruent, mood anxious and euthymic. Thoughts linear, logical, no signs of hallucinations or delusions. Client Response/Progress/Benefit: []Pt engaged during session AEB providing input, actively participating in activity, completing worksheet, and taking notes throughout. Group processed the activity and identified positive and negative forces impacting ability to complete the challenge. Pt was attentive during psychoeducation, asking questions throughout, and appeared to benefit from increased insight on the impact of own personal negative and positive forces on mental wellness. Identified personal positive forces as spirituality, encouragement from others, clear goals for self, and balance. Noted plans to increase positive impact of his self-care balance by being more willing to reach out to her supports and prioritize self-care activities such as journaling. Identified negative forces as: anxiety, negative self-talk, people-pleasing, and difficulties trusting others. Identified wanting to focus on reducing the need to people-please by working on improving boundaries and challenging herself to begin saying ?no? to things more regularly. Recommended continued IOP tx to increase skill application, continue to reduce anxiety and improve emotional stability, and prevent decompensation. Narrative Note: []
--- NOTE | 2021-03-17 09:00 | BH.SGPN.GN ---
Behaviors/Verbalizations/Mental Status: [] Pt eye contact good, casually dressed, motor activity appropriate, speech normal rate and tone, mood euthymic, congruent affect, thoughts linear and intact, no evidence of delusions or hallucinations. Patient indicated no suicidal ideation, plan or intent on daily symptom tracker. Client Response/Progress/Benefit: [] Patient receptive of session, engaged throughout AEB sharing thoughts and feelings with group. Identified emotion for the day as ?grateful?, noting this is due to appreciating the help her has provided over the past few days. Expressed this was specifically helpful last night as he woke up to feed their 3-month-old baby so client could catch up on sleep. Client discussed that lack of sleep has been a recent stressor and that she believes this has made he more emotionally labile. Discussed accepting her ?s help as a personal win as she often tries to do everything herself. Additional win noted as taking time to journal and take a bath for self-care. Receptive of and appeared to benefit from group encouragement and support. Patient to continue IOP to promote healthy change behaviors, continue to improve sx management and mood stability, and prevent decompensation. Narrative Note: []
--- NOTE | 2021-03-17 10:20 | BH.SGPN.GN ---
Behaviors/Verbalizations/Mental Status: []Client alert and oriented, neatly dressed and groomed. Eye contact good. Motor activity appropriate. Speech within normal limits. Affect congruent, mood euthymic. Thoughts linear, logical, no evidence of hallucinations or delusions. Client Response/Progress/Benefit: []Client responded well to session, attentive and contributing to discussion. Client worked cooperatively with the group to identify factors that contributed to how we define ourselves which included: upbringing, core beliefs, trauma, social media, past failures, and mental health. Group defined and discussed social and perceived stigma. Client reported she has experienced the impacts of perceived and social mental health stigma. Client shared labels she has heard regarding mental health such as being ?a liability.? Client also shared there was stigma associated with the mental health issues she experiences after giving . Client seemed to benefit from increased awareness of how mental health stigma can impact view of self. Client to continue IOP tx to further improve mood stability, increase self-care, and reduce negative thinking. Narrative Note: []
--- NOTE | 2021-03-17 15:19 | BH.MDN ---
Multi-Disciplinary Note - Note 45-min Individual Time Started:: 11:55 Date: 03/17/21 Purpose of session/treatment goals addressed:: To address goal #2 of client's tx plan as well as review homework. Eye Contact:: Good Motor Activity:: Appropriate Appearance:: Neat Speech:: Other - circumstantial Mood:: Euthymic Affect:: Congruent Thoughts:: Flight of ideas, No evidence of hallucinations/delusions noted Staff Interventions:: Therapist used active listening and provided psychoeducation when necessary. Therapist reviewed client's homework and gathered information on client's triggers and life experiences that have shaped client. Therapist provided gentle thought challenging. Therapist gave client self-reflection questions for journaling for homework. Client Response:: Client responded well to session, open to meeting with therapist. Client stated she has been trying to engage in more self-care. Client shared she got more sleep last night and has been journaling. Client stated her reflections from journaling have been helpful and client has realized more about her triggers. Client shared a recent anger outburst she had and triggers for anger. Discussed ways she can handle anger in the future such as deep breathing, taking breaks, and riding the wave. Client also shared that she tends to hole grudges and is passive in communication at times. This results in client blowing up and client would like to change this. Client receptive to practicing more assertive communication as well as boundary setting. Client also discussed how her childhood and mother have shaped client today. Client states belief some of her people pleasing, focus on image, and negative thinking stems from her mother's expectations of client. Client will continue to use journaling for self-reflection. Risks/Concerns:: Client denies any suicidal ideations, plan, or intent as of . Client reports sleep has improved and she is medication compliant. Progress Toward Goals/Plan:: Client is demonstrating progress towards tx goals AEB her self-report of increased self-care and sleep over the past few days. Client is continuing to gain insight on her symptoms, triggers, and negative thinking patterns. Client can continue to benefit from IOP tx to reduce anxiety, ruminations, negative thinking patterns, and anger. Will continue IOP tx and outpatient counseling. Time Stopped:: 12:40
--- NOTE | 2021-03-19 09:00 | BH.SGPN.GN ---
Behaviors/Verbalizations/Mental Status: [] Eye contact is good. Motor activity is appropriate. Appearance is neat. Speech is Appropriate. Mood is anxious. Affect is congruent. Thoughts are linear and logical. No evidence of psychosis. Reviewed daily check in sheet and no reports of suicidal ideations or intent. Client Response/Progress/Benefit: [] Pt was an active participant in group discussion. Attentive. Provided appropriate feedback. Emotion for today is lively. Mental health win was addressing an incident that upset her. Shared that during recent counseling sessions with therapist outside of [facility] something was said that upset her. She did not address it right away however later talked with . In the past she would have let this ruminate and cause resentment, however felt it would be more beneficial to communicate her emotions. Reports that was receptive. She plans to also talk with therapist about this. Also mental health win is that she is sleeping well. Feels relaxed today. Progress noted per pt report. Benefited from group discussion, feedback, and encouragement. Will continue in IOP to prevent decompensation, stabilize mood, and help transition back after psych admit. Narrative Note: []
--- NOTE | 2021-03-19 10:10 | BH.SGPN.GN ---
Behaviors/Verbalizations/Mental Status: []Client alert and oriented, neatly dressed and groomed. Eye contact good. Motor activity appropriate. Speech within normal limits. Affect constricted, mood agitated. Thoughts linear, logical, no signs of hallucinations or delusions. Client Response/Progress/Benefit: []Pt was an active participant in group discussion and completed group worksheet. Provided appropriate feedback and shared she struggles with managing anger and the physical symptoms that come with it. Group worked together to define anger and discussed the ways anger can impact one internally and externally. Pt reported that anger can be triggered by internal thoughts/feelings or external situations. Pt completed the iceberg exercise and identified emotions that tend to ?live under the surface? of anger. Pt also gained awareness of her typical responses to anger which included: having a short fuse, being defensive, lack of filter when speaking, and blaming others. Pt acknowledges that feeling invalidated, guilty, ashamed, and embarrassed often lead to anger. Benefited from group by increasing understanding of the impact of anger on mental health. Will continue IOP tx to prevent decompensation, increase emotional regulation skills, and improve daily functioning. Narrative Note: []
--- NOTE | 2021-03-19 11:12 | BH.SGPN.GN ---
Behaviors/Verbalizations/Mental Status: []Client alert and oriented, casually dressed and groomed. Eye contact good. Motor activity appropriate. Speech within normal limits. Affect congruent, mood euthymic. Thoughts linear, logical, no signs of hallucinations or delusions. Client Response/Progress/Benefit: []Pt was engaged throughout AEB participating in challenge activity and processing how skills used in activity could relate back to healthy skills for anger management in daily life. Did well to challenge initial frustrations and use creative problem solving skills with her supports during activity. Contributed as group brainstormed healthy coping skills for better managing anger which included: music, exercise, changing the temperature and environment, art, STOPP, and journaling. Pt noted use of music to help regulate emotions and calm down. Pt appeared to benefit from identifying different techniques to manage anger as well as gaining awareness of potential consequences of unmanaged anger. Pt selected the STOPP technique and enjoyable music as coping skills she would like to try to better regulate anger. Progress noted as pt reports increased use of supports rather than minimizing. Will continue IOP tx to promote the continued use of healthy coping skills, improve consistent mood stability, and further decrease irritability. Narrative Note: []
--- NOTE | 2021-03-23 09:00 | BH.SGPN.GN ---
Behaviors/Verbalizations/Mental Status: [] Eye contact is good. Motor activity is appropriate. Appearance is casual. Speech is Appropriate. Mood is euthymic. Affect is full. Thoughts are linear and logical. No evidence of psychosis. Reviewed daily check in sheet and no reports of suicidal ideations or intent Client Response/Progress/Benefit: [] Pt was an active participant in group discussion. Attentive. Provided appropriate feedback. Emotion for today is on-edge. Mental health wins include assertive communication and thought reframing over the weekend. Shared with the group that their was a miscommunication with her over the weekend. In the past she would have been angry and resentful over this and let it run my whole day. This weekend she was open with her frustrations and honest with her needs which was both beneficial and helpful. Also discussed another event in which she utilized opposite action and thought reframing which turned out to be very beneficial for her mood. Progress noted per pt report. Benefited from group support, encouragement, and feedback. Will continue in IOP to prevent decompensation, provide support, and stablize mood. Narrative Note: []
--- NOTE | 2021-03-23 10:14 | BH.SGPN.GN ---
Behaviors/Verbalizations/Mental Status: [] Client alert and oriented, casually dressed and groomed. Eye contact good. Motor activity appropriate. Speech within normal limits. Affect congruent, mood euthymic. Thoughts linear, logical, no evidence of delusions or hallucinations. Client Response/Progress/Benefit: []Client engaged throughout session AEB providing input when prompted, taking notes, and actively listening throughout. Appeared to connect with discussion on crisis and how unhealthy coping could result in a personal crisis. Group reflected on examples of what a crisis can be and the importance of having awareness of personal warning signs in order to prevent reaching crisis point. Shared that loss of custody of children could be a potential personal crisis trigger. Group identified potential warning signs for crisis and client completed the personal warning signs worksheet. Client identified personal crisis warning signs to include: isolation, overscheduling, starting tasks and not completing them, and increased impulsiveness. Client reports they can tell when struggling if feeling more ?within myself? and having difficulties in engaging with others. Client benefited from increasing awareness of what leads to crisis and personal warning signs. Client will continue IOP tx to prevent decompensation, continue to promote healthy change behaviors, and increase healthy coping skills. Narrative Note: []
--- NOTE | 2021-03-23 11:15 | BH.SGPN.GN ---
Behaviors/Verbalizations/Mental Status: []Client alert and oriented, casually dressed and groomed. Eye contact fair. Motor activity appropriate. Speech within normal limits. Affect congruent. Mood euthymic. Thoughts linear, logical, no signs of hallucinations or delusions. Client Response/Progress/Benefit: []Client responded well to session as evidenced by client listening attentively to others and providing strategies during discussion. Client identified her warning signs for crisis and gained further awareness of earliest warning signs. Client created a crisis action plan to help client better manage warning signs for crisis. Client?s action plan for overscheduling included: have partner help keep her accountable, write down when she says no to someone or something, fill time with family, don't focus on blocking schedule with events, and listen to music.. Client appeared to benefit from creating a crisis action plan and increasing self-awareness. Client to continue IOP tx to continue use of healthy coping, challenge distorted thoughts and prevent decompensation.
--- NOTE | 2021-03-24 10:16 | BH.SGPN.GN ---
Behaviors/Verbalizations/Mental Status: []Client alert and oriented, casually dressed and groomed. Eye contact good. Motor activity appropriate. Speech within normal limits. Affect congruent, mood euthymic and anxious. Thoughts linear, logical, no signs of hallucinations or delusions Client Response/Progress/Benefit: [] Client engaged in session AEB client providing input and personal examples, taking notes, and listening attentively to peers. Client shared connecting with the importance of setting boundaries, noting ?I think of boundaries as a fence for our emotions, ect.?. Client assisted group with identifying barriers to setting healthy boundaries. These included: fear of abandonment, fear of being vulnerable, self-doubt, discomfort, and feeling it?s ?too hard?. Shared a personal barrier she has experienced in the past is struggling with not wanting to upset or let others down. Listened and provided examples during discussion on different types of boundaries. Provided example of intellectual as ?Communicating intentions before acting on them?. Client seemed to benefit from increased awareness of how boundaries impact mental health. Will continue IOP tx to improve use of healthy coping, improve boundary setting skills, maintain stability, and reduce mental health sx. Narrative Note: []
--- NOTE | 2021-03-24 11:19 | BH.SGPN.GN ---
Behaviors/Verbalizations/Mental Status: []Client alert and oriented, neatly dressed and groomed. Eye contact good. Motor activity appropriate. Speech within normal limits. Affect congruent, mood euthymic and anxious. Thoughts linear, logical, no signs of hallucinations or delusions. Client Response/Progress/Benefit: []Client responded well to session, connecting with peers and receptive to supportive statements. Client engaged during psychoeducation on the different boundary styles. Client reported she has porous boundaries as client shared she struggles to say no and often puts more values on others? opinions. Client stated she is putting effort into being more flexible with her boundaries which has ?freed me up to consider alternative things.? Client participated in brainstorming strategies to improve boundary setting. Client wants to work on the strategy of asking herself what saying no frees up in her schedule. Seemed to benefit from increased awareness of how current boundary style impacts mental health and learning different strategies to improve boundary style. Client to continue IOP tx to monitor mood, increase healthy coping skills, and improve daily functioning. Narrative Note: []
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
--- NOTE | 2021-03-25 09:02 | BH.SGPN.GN ---
Behaviors/Verbalizations/Mental Status: []Client alert and oriented, casually dressed and groomed. Eye contact good. Motor activity appropriate. Speech within normal limits. Affect congruent, mood anxious. Thoughts linear, logical, no signs of hallucinations or delusions. Reviewed client?s symptom tracker, no risk for suicidal ideation reported as of 03/25/21 Client Response/Progress/Benefit: [] Client responded well to session, attentive and engaged. Client reports feeling apprehensive this morning, indicating ?I wish I could say something more positive but that wouldn?t be fully honest?. Expressed her apprehension is due to current stressor involving writing a letter at a friend?s request. Shared using her supports for encouragement and knows doing the ?anxious thing? will be helpful as well. Identified current positives as continuing to use the coping skills she has learned such as listening to music to prevent sx escalation, additional positive was meeting with her to address ways to baby proof the house at the expressed concern of her [id number]. Identified coping skills she has been using to include opposite action, positive self-talk, reaching out to supports, perspective challenging, and listening to music. Appeared to benefit from reflecting on progress. Will continue IOP tx to promote gains, further improve mood stability, and improve daily functioning. Narrative Note: []
--- NOTE | 2021-03-25 10:12 | BH.SGPN.GN ---
Behaviors/Verbalizations/Mental Status: []Client alert and oriented, casually dressed, hygiene appeared to be tended to. Eye contact fair. Motor activity appropriate. Speech within normal limits. Affect congruent. Mood euthymic. Thoughts linear, logical, no signs of hallucinations or delusions. Client Response/Progress/Benefit: []Pt engaged participant AEB providing input at times during session and listening attentively to others. Group identified not engaging in self-care can result in increased irritability, increased stress, increased depression, increased anger, using more unhealthy coping, and larger wave of lows and highs. Pt reported sometimes she believes that self-care takes too much work. Pt worked with group to identify benefits of self-care which includes: improve mental health, increased confidence, increased self-esteem, increased productivity, be a good example to others and able to help others more effectively. Pt seemed to benefit from increased awareness of the benefits of self-care and common barriers to self-care. Pt to continue IOP to continue use of healthy coping, challenge distorted thoughts and prevent decompensation. Narrative Note: []
--- NOTE | 2021-03-25 11:12 | BH.SGPN.GN ---
Behaviors/Verbalizations/Mental Status: []Client alert and oriented, neatly dressed and groomed. Eye contact good. Motor activity appropriate. Speech within normal limits. Affect full, mood anxious. Thoughts linear, logical, no signs of hallucinations or delusions. Client Response/Progress/Benefit: []Client engaged participant AEB client taking notes during discussion and listened attentively to peers. Participated in group discussion on the various areas of self-care, benefits, and types of self-care activities for each area. Client completed worksheet in which client identified current self-care practices and what self-care activities client wants to start using. Client reported wanting work on social self-care as client believes this will help her interact with others and ?sit with uncomfortable? feelings. Client plans to work on this during a playdate this Tuesday and shared she will refrain from cleaning up the mess. Client shared this will help her be more present and sit with anxiety. Appeared to benefit from reflecting on the area of self-care client can improve and setting a small goal. Will continue IOP tx to promote mood stability, increase self-care, and improve emotional regulation skills. Narrative Note: []
--- NOTE | 2021-03-26 06:50 | BH.COMM ---
Communication Note - Communication with Client Communication Note: Spoke with client's outpatient therapist, Naina, regarding client's IOP progress and treatment.
== END 2021-03-30 23:59 ==
LOC: BHIOP 09:45
PROVIDERS: Referring Provider Psychiatry & Neurology Psychiatry; Visit Provider Psychiatry & Neurology Psychiatry
DX: F30.2 Manic episode, severe with psychotic symptoms (principal); F41.8 Other specified anxiety disorders; F43.10 Post-traumatic stress disorder, unspecified; Z79.899 Other long term (current) drug therapy; Z78.0 Asymptomatic menopausal state; E03.9 Hypothyroidism, unspecified
CPT/HCPCS: H0035; 90834; 90837; 90853

== ENCOUNTER 2021-03-31 09:00 | Outpatient (RCR) | payer BC, SELFPAY ==
--- NOTE | 2021-03-31 09:00 | BH.SGPN.GN ---
Behaviors/Verbalizations/Mental Status: [] Eye contact is good. Motor activity is appropriate. Appearance is neat. Speech is Appropriate. Mood is euthymic. Affect is full. Thoughts are linear and logical. No evidence of psychosis. Reviewed daily check in sheet and no reports of suicidal ideations or intent. Client Response/Progress/Benefit: [] Pt was an active participant in group discussion. Attentive. Provided appropriate feedback. Daily symptom tracker notes 11/04 for depression. Emotion for today is encouraged. She shared some recent family stressor which she was able to problem-solve though. Also asked for group feedback regarding returning to social media. She had been off social media for 5 months and over the weekend after taking some pictures decided to post them. This led to downloading the shahnaz again and re-engaging. Was open to feedback and ultimately decided that being off social media has been more beneficial than utilizing it. Notes that she would spend several hours on it and was less engaged with family. Progress noted. Benefited from group discussion, support, and encouragement. Will continue in IOP to maintain gains and prevent decompensation. Narrative Note: []
--- NOTE | 2021-03-31 10:10 | BH.SGPN.GN ---
Behaviors/Verbalizations/Mental Status: [] Eye contact is good. Motor activity is appropriate. Appearance is casual. Speech is Appropriate. Mood is euthymic. Affect is full. Thoughts are linear and logical. No evidence of psychosis. Client Response/Progress/Benefit: [] Pt was an active participant in group discussion and activity. Attentive during psychoeducation on factors that build resiliency. Worked with peers to to define resiliency in which they settled on bouncing back from difficult times. Along with peers also identified what could impact resilience which included; environment, upbringing, family MH beliefs, poverty, support, trauma, never learning coping skills, and emotions. Insight in how group experiential activity in which therapist induced chaotic environment impacted resilience and how group overcame it. Pt benefited by increasing awareness on the role of resilience in mental health and factors that can help build resiliency. Will continue in IOP to prevent decompensation, increase healthy coping, and stablize mood. Narrative Note: []
--- NOTE | 2021-03-31 11:14 | BH.SGPN.GN ---
Behaviors/Verbalizations/Mental Status: []Client alert and oriented, neatly dressed and groomed. Eye contact good. Motor activity appropriate. Speech within normal limits. Affect congruent, mood euthymic. Thoughts linear, logical, no signs of hallucinations or delusions. Client Response/Progress/Benefit: []Client responded well to session, engaged and participated throughout discussion. Client participated in the discussion of how each resiliency component can help increase personal resiliency. Client worked with group to identify ways to practice each of the resiliency traits reviewed. Client shared belief client has the resiliency trait of moving towards her goals which has helped client get back into exercising. Client would like to continue working on this resiliency trait as client wants to get back into running eventually. Appeared to benefit from reflecting on already existing resiliency traits and learning how to strengthen resilience. Will continue IOP tx further improve mood stability and improve daily functioning. Narrative Note: []
--- NOTE | 2021-04-01 09:00 | BH.SGPN.GN ---
Behaviors/Verbalizations/Mental Status: []Client alert and oriented, neatly dressed and groomed. Eye contact good. Motor activity appropriate. Speech within normal limits. Affect congruent, mood euthymic. Thoughts linear, logical, no signs of hallucinations or delusions. Reviewed client?s symptom tracker, no risk for suicidal ideation, plan, or intent as of 04/01/21 Client Response/Progress/Benefit: []Client responded well to session, attentive and providing supportive statements. Client reports feeling serene this morning. Client shared she has been letting her supports help her rather than trying to do everything on her own. Client stated she got to take a nap yesterday, went on a walk, and talked with her father. Client shared she is currently worried about her increased fatigue as client felt like she could have fallen asleep behind the wheel. Client will meet with the psychiatrist today and in the meantime, client has a support driving her to IOP. Appeared to benefit from connecting with peers and seeing psychiatry today. Progress noted in client's application of coping skills. Will continue IOP tx to prevent decompensation, monitor medication, and increase healthy coping skills. Narrative Note: []
--- NOTE | 2021-04-01 10:10 | BH.SGPN.GN ---
Behaviors/Verbalizations/Mental Status: []Client alert and oriented, casually dressed and groomed. Eye contact good. Motor activity appropriate. Speech within normal limits. Affect congruent, mood euthymic. Thoughts linear, logical, no signs of hallucinations or delusions. Client Response/Progress/Benefit: []Client active participant as evidenced by providing input throughout discussion. Helped group identify what can impact automatic thoughts including: experience, learned behaviors, skills we learn, environment, mood, pain, hungry, lonely and tired. Client reported in the past she has invented scenarios about other people which led to untrustworthiness and destruction of relationship. Client connected with the discussion about how distorted thought patterns can reinforce mental health symptoms. Client reported sometimes she can jump to conclusions about situations with her which can cause unnecessary conflict. Appeared to benefit from increasing awareness of cognitive distortions and how they can impact emotions and behaviors. Will continue IOP tx to prevent decompensation, continue use of healthy coping skills, and reduce negative thinking.
--- NOTE | 2021-04-01 11:15 | BH.SGPN.GN ---
Behaviors/Verbalizations/Mental Status: []Client alert and oriented, casually dressed and groomed. Eye contact good. Motor activity appropriate. Speech within normal limits. Affect congruent, mood euthymic. Thoughts linear, logical, no apparent hallucinations and delusions. Client Response/Progress/Benefit: [] Client was an active participant AEB client providing input throughout session and completing group activity. Attentive during psychoeducation and additional discussion on cognitive distortions. Client engaged while group practiced reframing example thoughts on the board. Client then worked within their small group to identify potential thought-challenge strategies for specific types of distortions. Client shared they struggle with personalization and identified radical acceptance and asking supports their point of view as skills she would like to use to combat this distortion. Client seemed to benefit from reframing distorted thoughts and brainstorming several skills for challenging distortions. Will continue IOP tx to prevent decompensation and continue to improve mood stability. Narrative Note: []
--- NOTE | 2021-04-01 11:59 | PCM.BH.PN ---
Progress Note Progress Note: History of Present Illness/Interim History: [] The patient is a 35-year-old female who is seen in follow-up at the [facility] behavioral health IOP program. I last saw the patient 3 weeks ago and at that time no medication changes were made. The patient has been doing well in the IOP program and feels she has made progress and learned valuable skills to help manage her mental health issues. The staff also feels like the patient has made good progress. She states that her mood is euthymic or normal and she is not having any manic or psychotic symptoms. She does feel somewhat tired the last few days and on days when she feels tired she does not drive. Her infant is now about 4 months old and is doing well but still sometimes gets up at night once or twice and she breast-feeds. The patient has had 1 visit with her new outpatient psychiatrist already and felt that this is a good fit. Her sleep is very good and she gets sometimes 8 hours a night depending on how her 4-month-old sleeps. She is tolerating her Abilify well but does notice a dry mouth when she first gets up in the morning. She is trying to keep regular sleep-wake hours as much as is possible with 2 young children. Breast-feeding is going well for her and she feels her is helping her regulate herself also. She feels that she needs to decrease the commitments that she had in the past and felt that she was doing too much so he she is currently doing this. She has not any longer doing her starting multiple projects like she was when she was manic. 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 She denies any hallucinations, delusions, symptoms of layla, symptoms of depression. She denies passive thoughts of , suicidal or homicidal ideation. Current Psychiatric Medications: [] Abilify 15 mg p.o. nightly (since February 2021); melatonin 3 mg p.o. nightly. Mental Status Examination: [] Patient is a 35-year-old 4 months female who is seen wearing a mask due to the pandemic and is casually dressed and groomed with good hygiene. She has no psychomotor agitation or retardation. Eye contact is good and speech is normal rate and rhythm and fluent with no pressure. Mood is euthymic. Affect is full and normal. Thought process is goal-directed and organized. Thought content: There is no evidence of hallucinations, delusions, thoughts of , suicidal ideation, or homicidal ideation. Reality testing is intact. Impulsivity is low. Judgment is intact. Insight: Good. Diagnoses: [] Independence I: [] Bipolar 1 disorder, manic, severe with psychotic features (resolving); social anxiety disorder; PTSD Independence II: [] Deferred Independence III: [] 4 months , hypothyroidism Independence IV:[]] Primary support issues Plan: [] The patient will continue the IOP program at [facility] as the structure, support, education, and group therapy have benefited her and will hopefully prevent worsening of her symptoms or relapse. She felt safe during the interview and if it anytime she does not feel safe she will let us know or go to the emergency room. No medication changes were made today. The patient will follow up with her outpatient psychiatrist and I will follow her while she is in the IOP program. The risks, options, complications and possible side effects of the medications were again discussed with the patient and she understands and accepts these.
--- NOTE | 2021-04-02 10:10 | BH.SGPN.GN ---
Behaviors/Verbalizations/Mental Status: [] Eye contact is good. Motor activity is appropriate. Appearance is neat. Speech is Appropriate. Mood is euthymic. Affect is full. Thoughts are linear and logical. No evidence of psychosis. Client Response/Progress/Benefit: [] Pt was an active participant in group discussion and activity. Insight during activity that finding positive aspects of a picture was more challenging than identifying negatives. Pt along with peers were able to identify what could impact one's perspective which included; upbringing, core beliefs, environment, relationships, and sleep. Group was able to identify how a negative perspective could impact progress in mental health treatment leading to beliefs such as; I will not get better, nobody understands me, apathy, withdrawing, irritability, catastrophizing, disqualifying positives, focusing on flaws, personalizing, labeling, focusing on negatives, and convincing one to quit. Pt was able to identify a perspective that has been helpful for her which was understanding that changes purpose and goals id OK and being flexible is not a failure . Benefited from group by increasing awareness on the role of perspective in mental health wellness. Will continue in IOP to prevent decompensation and increase healthy coping. Narrative Note: []
--- NOTE | 2021-04-02 10:17 | BH.SGPN.GN ---
Behaviors/Verbalizations/Mental Status: []Client alert and oriented, neatly dressed and groomed. Eye contact good. Motor activity appropriate. Speech within normal limits. Affect congruent, mood euthymic. Thoughts linear, logical, no signs of hallucinations or delusions. Client Response/Progress/Benefit: []Pt engaged participant AEB pt providing input throughout session, listening attentively to peers and completing strengths exploration handout. Pt did struggle to identify strengths which included gratitude, love of learning, and confidence. Pt stated these strengths will help client?s mental health recovery by helping pt stay ?rooted? in the moment, growth and learn, and finding strength in her values and opinions. Pt seemed to benefit from increased awareness of personal strengths and improved understanding how perspective can impact view of self. Pt is to continue IOP tx to improve mood stability, further increase self-awareness, and increase self-care. Narrative Note: []
--- NOTE | 2021-04-02 14:21 | BH.MDN_ITS ---
Multi-Disciplinary Note - Note 45-min Individual Time Started:: 09:11 Date: 04/02/21 Purpose of session/treatment goals addressed:: To address problem #2 of client's tx plan. Another goal was to provide psychoeducation on maladaptive coping skills and responses to childhood trauma. Eye Contact:: Fair Motor Activity:: Appropriate Appearance:: Neat Speech:: Tangential Mood:: Euthymic, Anxious Affect:: Congruent Thoughts:: Other - mostly linear, but at times jumping from one topic to the next., No evidence of hallucinations/delusions noted Staff Interventions:: Therapist reviewed client's homework from last session. Provided psychoeducation on how anxiety impacts perspective. Discussed ways to combat distortions that reinforce anxiety. Therapist provided client with a worksheet on how different kinds of trauma during childhood can impact coping and beliefs in adulthood. Therapist encouraged client to reflect on these as well as resiliency factors for homework. Client Response:: Client responded well to session, open to meeting with therapist. Client reports today she is still feeling tired, but client feels less tired than yesterday. Client stated she had a nightmare last night that seemed so real and triggered anxiety this morning. Client shared belief that dreams can try and tell us something, and client reports belief that maybe this dream was trying to tell client she is stressed. Discussed self-care and boundary setting. Client receptive to psychoeducation on anxiety and ways to combat distortions. Client reminded herself that she has strengths and coping skills, even when anxiety tells her otherwise. Client has been keeping up with journaling and she shared she sat with the uncomfortable last night. Client also reports her anger has decreased which is positive. Client receptive to learning about the impacts of trauma on coping. Client connected with coping responses such as having a hard time staying present, avoiding relationships that might lead to something sexual, hiding her feelings and needs from others, and paying close attention to what upsets others and try hard not to upset them. Client shared learning this helps her better understand herself. Client will reflect further on these responses and journal about her resiliency factors for homework. Risks/Concerns:: Client denies any symptoms of psychosis. Denies any suicidal ideations, plan, or intent as of 04/02/21. Progress Toward Goals/Plan:: Client continues to demonstrate progress towards tx goals AEB her consistent application of coping skills and self-report of impro ving functioning. Client reports no symptoms of psychosis or layla currently. Client states the past few days she has been very fatigued and was fearful of falling asleep while driving, so she has a friend bringing her to IOP. Endorses anxiety today about fear of setbacks and a nightmare client had last night. Will continue IOP tx to monitor mood, further increase the use of coping skills, and improve self-care. Time Stopped:: 10:00
--- NOTE | 2021-04-06 09:00 | BH.SGPN.GN ---
Behaviors/Verbalizations/Mental Status: [] Pt eye contact good, casually dressed, motor activity appropriate, speech normal rate and tone, mood euthymic, congruent affect, thoughts linear and intact, no evidence of delusions or hallucinations. Reviewed client?s symptom tracker, no signs of suicidal ideation, plan, or intent as of today. Client Response/Progress/Benefit: []Pt responded well to session AEB by pt listening attentively to peers and sharing thoughts and feelings. Pt reported she has been working on the goal of not jumping from one project to another which she noticed was a struggle on Tuesday. Pt stated she was having a hard time relaxing, having strong desire to get a lot done. Pt reported she didn't notice that feeling rest of weekend, but will continue to monitor. Pt stated mental health positive as going on walks and getting to see her daughter enjoy swinging. Pt to continue IOP to continue use of healthy coping, stabilize moods, and prevent decompensation. Narrative Note: []
--- NOTE | 2021-04-06 09:47 | BH.MTP_ITS ---
Treatment Plan Review Date of Admission:: 03/09/21 Date of Treatment Plan Review:: 04/06/21 Admitting Diagnoses:: Bipolar 1 disorder, manic, severe with psychotic features (F 31.21); social anxiety disorder (F 40.1); PTSD Current Diagnoses:: Bipolar 1 disorder, manic, severe with psychotic features (resolving); social anxiety disorder; PTSD Patient's Response to Treatment:: Client is responding well to IOP tx AEB her overall symptom reduction. Client?s DSM-5 scores have decreased by 44% since admission. Client?s symptoms for layla have decreased by 75% since admission. Client has great engagement in IOP tx AEB good attendance and active pa rticipation. Client is actively using her coping skills such as journaling, walking, and positive self-talk. Status of Current Problems and Symptoms: Client has been reporting some issues with sleep over the past two weeks and recently had a nightmare that disturbed client. Client also can continue to work on communicating with her supports and maintaining mood stability. The goal is to continue to monitor her medication and mood to keep client stable. Problem #1 Problem Name:: Mood instability Status of Goals:: Objective 1- complete with ongoing work encouraged. Client denies any symptoms of depression over the past two weeks. Client's symptoms for layla have decreased by 75% and client has not reported any symptoms of psychosis. Client has been exercising, journaling, and spending time with her family without interruptions. Objective 2- ongoing. Client can catch distorted thought patterns and has been challenging these. However, client?s negative self-talk is deep rooted, so it will take time to replace. Team Recommendations:: Treatment team recommends that client continue to attend IOP for the next two weeks to promote mood stability, monitor medication, and further increase coping skills. Problem #2 Problem Name:: Anxiety and irritability Status of Goals:: Objective 1- partially complete. Client?s DSM-5 scores for irritability have decreased by 100% since admission. Client?s DSM-5 scores for anxiety have increased by 50% since admission. Client reports this may be due to client becoming more social. Client has been using healthy coping skills and reports she has been working on sitting with the uncomfortable. Objective 2- partially complete. Client can catch distorted thought patterns and has been challenging these. Client can continue to get better at setting boundaries in the moment to prevent rumination. Team Recommendations:: Treatment team recommends that client continue to attend IOP for the next two weeks to promote mood stability, monitor medication, and further increase coping skills. Client can also benefit from continuing to work set healthy boundaries and set small goals each day.
--- NOTE | 2021-04-06 10:10 | BH.SGPN.GN ---
Behaviors/Verbalizations/Mental Status: [] Client Response/Progress/Benefit: [] Pt was an active participant in group discussion and activity. Attentive during psychoeducation. Pt and peers provided examples of pitfalls or setbacks that people can fall into which impact mental health which included; triggers, fear, cognitive distortions, isolating, self-pity, avoidance, and pushing support away. During experiential activity pt along with peers identified several other pitfalls associated with mental health which included; poor communication, assumptions, lack of awareness, negative self-talk, anger, personalizing, and ruminating. Benefited from group by increasing awareness of pitfalls which can impact mental health. Pt will continue in IOP to prevent decompensation, maintain gains, and stablize mood. Narrative Note: []
--- NOTE | 2021-04-06 11:18 | BH.SGPN.GN ---
Behaviors/Verbalizations/Mental Status: []Client alert and oriented, neatly dressed and groomed. Eye contact good. Motor activity appropriate. Speech within normal limits. Affect congruent, mood euthymic. Thoughts linear, logical, no signs of hallucinations or delusions Client Response/Progress/Benefit: []Client receptive of session, engaged throughout AEB client actively listening and contributing to discussion, as well as taking notes. Client completed worksheet identifying personal pitfalls impacting mental health progress. Client identified the following pitfalls: unrealistic expectations of self, over-reacting, jumping to conclusions, being afraid to ask for help, and not using healthy coping skills. Attentive during group brainstorm of strategies to overcome pitfalls. Client will work on overcoming being afraid to ask for help by using opposite action and reminding herself how good it feels when she helps others. Benefited from identifying personal pitfalls and strategies to overcome these pitfalls. Will continue IOP tx to maintain mood stability, further improve daily functioning, and maintain gains. Narrative Note: []
--- NOTE | 2021-04-07 09:00 | BH.SGPN.GN ---
Behaviors/Verbalizations/Mental Status: []Client alert and oriented, neatly dressed and groomed. Eye contact good. Motor activity appropriate. Speech within normal limits. Affect congruent, mood euthymic. Thoughts linear, logical, no signs of hallucinations or delusions. Reviewed client?s symptom tracker, no risk for suicidal ideation, plan, or intent as of 04/07/21 Client Response/Progress/Benefit: []Client responded well to session, attentive and providing support to peers. Client reports feeling exuberant this morning. Client stated she has been feeling more present lately, walked over a mile yesterday, and spent time with her family without feeling the need to people please. Client reports people pleasing has been a long-term problem for client and she continues to work on sitting with the uncomfortable. Client shared she had to challenge some negative thinking yesterday when her mother had a different perspective on parenting than client does. Able to challenge personalizing. Appeared to benefit from reflecting on application of coping skills. Progress noted in increased physical activity, but can continue to work on challenge distortions and setting boundaries. Will continue IOP tx to promote mood stability and improve daily functioning. Narrative Note: []
--- NOTE | 2021-04-07 10:05 | BH.SGPN.GN ---
Behaviors/Verbalizations/Mental Status: [] Eye contact is good. Motor activity is appropriate. Appearance is casual. Speech is Appropriate. Mood is euthymic. Affect is full. Thoughts are linear and logical. No evidence of psychosis. Client Response/Progress/Benefit: [] Pt was an active participant in group discussion and activity. Attentive during psychoeducation. Group identified the benefits of making changes or taking action on their mental wellness which included; increased confidence, healthier relationships, improved emotional health, reduction of anxiety, increased awareness, and improved recognition of triggers. Pt stated that the 3 biggest obstacles for her people pleasing, fear of failure, and jumping to conclusions. Increased awareness of importance of taking action in mental health and obstacles that keep them from taking action. Will continue in IOP to prevent decompensation and stablize mood. Narrative Note: []
--- NOTE | 2021-04-07 11:10 | BH.SGPN.GN ---
Behaviors/Verbalizations/Mental Status: []Client alert and oriented, casually dressed and appropriately groomed. Eye contact good. Motor activity appropriate. Speech within normal limits. Affect congruent, mood euthymic. Thoughts linear, logical, no signs of hallucinations or delusions. Client Response/Progress/Benefit: []Client responded well to session, taking notes and participating in worksheet discussion. Client set a goal to gain control over her use of unrealistic expectations. Client wants to be able to work on this by laminating 3 strengths to put up around the house by April 09. Client stated she believes this will help improve her self-esteem and confidence. Client stated she will need support from her to accomplish this goal. Worked with group to brainstorm ideas to help increase follow through of goal. Appeared to benefit from identifying a small goal to benefit mental health. Will continue IOP tx to prevent decompensation, continue use of healthy coping skills, and improve confidence. Narrative Note: []
--- NOTE | 2021-04-09 10:15 | BH.SGPN.GN ---
Behaviors/Verbalizations/Mental Status: []Client alert and oriented, neatly dressed and groomed. Eye contact good. Motor activity appropriate. Speech within normal limits. Affect congruent, mood euthymic. Thoughts linear, logical, no signs of hallucinations or delusions. Client Response/Progress/Benefit: []Client was an engaged participant AEB client providing input throughout session and listened attentively to others. When discussing quote client provided an example of how our choices can change the course of our day/life. Client stated she feels empowered when she recognizes she has a choice in life. The group worked together to identify barriers that keep one from choosing a new and healthier path to mental wellness. Attentive during psychoeducation on the chapters of life. Benefited from increased awareness and education on barriers to choosing new wellness paths and chapters of life. Client identified being ?sometimes in chapter 3 sometimes 4.? Client acknowledges she has gained insight to warning signs and is learning when to set healthy boundaries. Will continue IOP tx continue use of healthy coping skills, reinforce healthy boundaries, and further promote mood stability. Narrative Note: []
--- NOTE | 2021-04-09 11:15 | BH.SGPN.GN ---
Behaviors/Verbalizations/Mental Status: []Client alert and oriented, casual dress, hygiene appropriate. Eye contact good. Motor activity appropriate, at times. speech and tone WNL. Affect congruent. mood euthymic. Thoughts linear, logical, no signs of hallucinations or delusions. Client Response/Progress/Benefit: []Client engaged in session AEB listening to discussion and provided input at times. Client attentive during psychoeducation about importance of maintenance plans. Client did well to work with the group to brainstorm strategies to promote making progress towards their desired chapter. Pt completed provided maintenance plan worksheet in small group. Pt identified personal triggers as: anger, brother, and mistrust. Identified warning signs as: starting to get territorial, questioning own motives, sarcasm, learned behavior. Pt identified healthy coping skills as: deep breathing , relaxation, and communicating needs with supports. Seemed to benefit from increasing awareness of triggers, warning signs and coping skills. Will continue IOP tx to stabilize moods, continue use of healthy coping and prevent decompensation. Narrative Note: []
--- NOTE | 2021-04-09 13:05 | BH.MDN_ITS ---
Multi-Disciplinary Note - Note 60-min Individual Time Started:: 09:15 Date: 04/09/21 Purpose of session/treatment goals addressed:: The purpose of this session was to prepare client for the upcoming weekend. Another goal to was to help increase confidence in decision making. Eye Contact:: Good Motor Activity:: Appropriate Appearance:: Casual Speech:: Appropriate Mood:: Anxious Affect:: Congruent Thoughts:: Linear, Logical, No evidence of hallucinations/delusions noted Staff Interventions:: Therapist used active listening and explored client's current stressors. Therapist used motivational interviewing and encouraged client to identify self-care boundaries. Therapist helped client develop a self- care plan for the weekend for client to share with her . Therapist used a decisional balance technique to help client make a more informed decision. Client Response:: Client responded well to session, open to meeting with therapist. Client reports feeling a little overwhelmed today because she has a busy weekend planned. Client stated this weekend she and her family will be spending all day Tuesday and Tuesday with her 's family. Client also was planning to go to [facility] with her to help her brother move. Client shared she has been a little more irritable lately and got anger recently with her . Able to connect that stress can result in increased irritability. Client willing to discuss self-care and boundaries for the weekend. Client came up with a plan to talk with her and get specifics about times for activities, schedule quiet time while with family, and share if she needs a break. Client also willing to complete a decisional balance to help client decide if she wants to go to [facility] or not. After completing this, client recognized there were more mental health benefits of not going. Client shared she continues to struggle with saying no because of people pleasing tendencies. Client encouraged to review her boundary setting skills over the weekend. Risks/Concerns:: Client denies any suicidal ideations, plan, or intent as of 04/09/21. Denies any symptoms of layla or psychosis. Progress Toward Goals/Plan:: Client continues to make progress towards [place] goals AEB her self-report of applying coping skills routinely. Client continues to report improved mood stability, but she is anxious about this weekend. Client also shares having some increased anger recently. Client reports ongoing struggles with boundary setting and asserting her thoughts. Will continue IOP tx to promote mood stability, manage anger, and improve daily functioning. Time Stopped:: 10:10
--- NOTE | 2021-04-13 09:05 | BH.SGPN.GN ---
Behaviors/Verbalizations/Mental Status: []Client alert and oriented, casually dressed and groomed. Eye contact good. Motor activity appropriate. Speech within normal limits. Affect congruent, mood anxious and dysthymic. Thoughts linear, logical, no signs of hallucinations or delusions. Reviewed client?s symptom tracker, no indication of suicidal ideation, plan, or intent as of this date, 04/13/21. Client Response/Progress/Benefit: []Client responded well to session, attentive and proving some input throughout, willing to process with group. Client reports feeling fatigued this morning and discussed this is due to having a busy, family-filled weekend. Shared that she had enjoyed the time with everyone and was able to take breaks as needed, but struggled with some irritability and frustration. Insight regarding impact on mood of limited self-care time to ?recharge?. Shared positive as reaching out to her regarding client current stressor which is her [id number]?s boundaries regarding client parenting. Noted this did not result in the outcome she had hoped for but that she was encouraged by reaching out and will continue to work on doing so. Additional positive noted as working on being ?present in conversations more? so that she is not interrupting her supports as often. Appeared to benefit from reflecting on personal positives and areas of progress, as well as the supportive group environment. Will continue IOP tx to promote consistent skill application, continue to improve mood stability and communication with supports, and prevent decompensation. Narrative Note: []
--- NOTE | 2021-04-13 10:10 | BH.SGPN.GN ---
Behaviors/Verbalizations/Mental Status: [] Eye contact is good. Motor activity is appropriate. Appearance is casual. Speech is Appropriate. Mood is euthymic. Affect is full. Thoughts are linear and logical. No evidence of psychosis. Client Response/Progress/Benefit: [] Pt was an active participant in group discussion and activity. Attentive during psychoeducation on internal vs external coping skills. Pt along with peers provided their thoughts and insights on the definition of coping skills. Pt along with peers worked together to identify unhealthy coping skills which included; over-eating, smoking, using substances, self-harm, lashing out, isolation, avoidance, sleeping, shopping, reckless behaviors, and denial. Interactive discussion amongst peers on the reasons that people utilize unhealthy copings skills (easy, comfortable, habitual, temporary relief). Benefited from increased awareness of unhealthy coping skills, internal coping skills, and external coping skills. Will continue in IOP to maintain gains, provided support, and prevent decompensation. Narrative Note: []
--- NOTE | 2021-04-13 11:15 | BH.SGPN.GN ---
Behaviors/Verbalizations/Mental Status: []Client alert and oriented, neatly dressed and groomed. Eye contact good. Motor activity appropriate. Speech within normal limits. Affect constricted, mood anxious. Thoughts linear, logical, no signs of hallucinations or delusions Client Response/Progress/Benefit: []Client responded well to session, taking notes and contributing throughout. Group discussed the different categories of coping skills which included distraction, emotional release, grounding, self-love, and thought challenging. Client participated in creating a coping skills ?menu? from the five categories of coping skills. Client's coping skill menu included: singing and listening to music, exercising, affirmations, positive self-talk, and reframing negative thoughts. Appeared to benefit from increasing repertoire of healthy coping skills. Will continue tx to promote mood stability, increase healthy boundary setting, and improve emotional regulation skills. Narrative Note: []
--- NOTE | 2021-04-14 10:08 | BH.SGPN.GN ---
Behaviors/Verbalizations/Mental Status: []Client alert and oriented, casual dress, hygiene tended to. Eye contact good. Motor activity appropriate. Speech within normal limits. Affect congruent, mood euthymic. Thoughts linear, logical, no signs of hallucinations or delusions. Client Response/Progress/Benefit: [] Engaged participant AEB pt providing input when throughout session and listening attentively to others. Engaged during psychoeducation portion reviewing fixed mindset, sharing personal examples of times she has struggled with fixed thinking. Discussed that fixed thoughts have led to feeling invalidated by others in the past. Pt worked with group to identify how a fixed mindset can impact mental health which included: keeping people stuck, reinforcing fear of failure, giving up, and negative self-talk. Able to identify personal examples of fixed thoughts which included ?They say I can?t so it must be true? and ?People are always judging me?. Client shared that she can connect with fear and negative environment as reinforcing fixed thoughts. Seemed to benefit from group by increasing awareness of how one's mindset can impact mental health and ability to cope. Pt will continue IOP tx this week to continue to promote healthy coping skills and continue to improve mental health sx management. Narrative Note: []
--- NOTE | 2021-04-14 11:13 | BH.SGPN.GN ---
Behaviors/Verbalizations/Mental Status: []Client alert and oriented, casually dressed and groomed. Eye contact good. Motor activity appropriate. Speech within normal limits. Affect congruent. mood euthymic. Thoughts linear, logical, no signs of hallucinations or delusions. Client Response/Progress/Benefit: []Client responded well to session, making connections during activity and able to reframe fixed thinking. Client took her fixed thought of ?I?m not a good enough mom? and discussed how this thought impacts her mental health. Client was able to use reframing techniques to create a more growth mindset thought of ?it doesn?t matter what others say, I am a good mom.? Client appeared to benefit from gaining awareness of her fixed thought patterns and practicing reframing techniques with peers. Progress noted in client?s ability to reframe distorted thinking more easily. Will continue IOP tx to promote gains and reinforce healthy coping skills. Narrative Note: []
--- NOTE | 2021-04-14 14:10 | BH.MDN_ITS ---
Multi-Disciplinary Note - Note 45-min Individual Time Started:: 09:10 Date: 04/14/21 Purpose of session/treatment goals addressed:: The purpose of this session was to increase client's emotional intelligence and review boundary setting techniques. Other topics included discharge and aftercare. Eye Contact:: Good Motor Activity:: Appropriate Appearance:: Casual Speech:: Appropriate Mood:: Euthymic, Anxious Affect:: Congruent Thoughts:: Circular, No evidence of hallucinations/delusions noted Staff Interventions:: Therapist used active listening and open-ended questions to gather information on client's current symptoms and stressors. Therapist prov ided psychoeducation on emotions and helped client understand that all her emotions are valid. Therapist used cognitive restructuring and assisted client in developing self-reflection questions to support boundary setting. Client Response:: Client responded well to session, open to meeting with therapist. Client stated she had a busy weekend, but it was positive in many wa ys. Client did set a boundary with her brother and did not go help his family move. Client shared she and her family were at a family reunion most of the weekend. Client stated even though there were positives, there were also triggers and stressors. Client reported at one point her 's cousins were jokingly making fun of my name which bother client. Client shared she was told that this was not a big deal but it produced physical and emotional discomfort to client. Client ended up reaching out to these cousins later on and telling them she was not okay with this. Client reported it is hard for her to trust her feelings at times. Discussed how all emotions are valid and what matters most is how we respond to them. Client also disclosed that she was severely bullied in school and making fun of her name was one of the ways children bullied her. Discussed how the situation over the weekend was a trauma trigger which helped validate her emotions. Also reviewed boundary setting and developed self- reflection questions. Client will ask herself does this give me physical and emotional discomfort? and am I compromising my needs to make others comfortable? Client feels this will help her trust her emotions and recognize when to speak up about her boundaries. Risks/Concerns:: Client denies any suicidal ideations, plan, or intent as of 04/14/21. Client reports no symptoms of layla or psychosis. Progress Toward Goals/Plan:: Client continues to demonstrate progress towards her TX goals AEB her self-report of improved mood and consistent use of coping skills. Client feels like she is less fatigued and has been driving on her own again. Client continues to struggle with setting boundaries and being assertive as this causes high anxiety and discomfort. Client also endorses unresolved trauma and could benefit from trauma therapy in the future. Client will continue IOP tx for another week to reinforce healthy coping skills, establish aftercare, and promote gains. Time Stopped:: 09:50
--- NOTE | 2021-04-15 09:05 | BH.SGPN.GN ---
Behaviors/Verbalizations/Mental Status: [] Eye contact is good. Motor activity is appropriate. Appearance is neat. Speech is Appropriate. Mood is anxious. Affect is congruent. Thoughts are linear and logical. No evidence of psychosis. Reviewed daily check in sheet and no reports of suicidal ideations or intent. Client Response/Progress/Benefit: [] Pt was an active participant in group discussion. Attentive. Shared that wants to be more assertive in her communication. Discussed a recent event in which extended family had said something that hurt her feelings and how she managed the event. Her goal is to be assertive with others at an upcoming family gathering that way she does not dwell on things. Also shared that during a walk yesterday she was feeling very angry and distant. Utilized skills and rather than continuing to ruminate and disengage she was able to reframe her thoughts and mood. Progress noted per pt report. Benefited from group discussion, support, and encouragement. Will continue in IOP to maintain gains and prevent decompensation. Narrative Note: []
--- NOTE | 2021-04-15 10:15 | BH.SGPN.GN ---
Behaviors/Verbalizations/Mental Status: [] Eye contact is good. Motor activity is appropriate. Appearance is casual. Speech is Appropriate. Mood is anxious, euthymic. Affect is congruent. Thoughts are linear and logical. No evidence of psychosis. Client Response/Progress/Benefit: []Pt was an active participant in group discussion AEB taking notes and providing input throughout. Attentive during psychoeducation reviewing internal and external obstacles. Participated in the reflection activity in which clients jovanni pictures depicting their current and desired reality and shared with the group. Current reality involved her feeling as though she is climbing towards her goals but continues to be faced with the fear her psychosis will return or that she will be unable to maintain her progress. Shared she is trying to challenge ?what if? thoughts but feels she is still ?trapped midway? and struggling with focusing on externals. Indicated that her desired reality involves being more confident in herself and her ability to maintain her progress. Identified skills that would help move her from current to desired realities would be challenging herself to be more realistic in expectations of herself, providing recent example of catastrophizing. Benefited from group by increasing current awareness and expectations for progress. Will continue in IOP to maintain stability, continue to promote healthy change behaviors, and further encourage communicating with supports. Narrative Note: []
--- NOTE | 2021-04-15 11:15 | BH.SGPN.GN ---
Behaviors/Verbalizations/Mental Status: []Client alert and oriented, casually dressed and groomed. Eye contact good. Motor activity appropriate. Speech within normal limits. Affect congruent. Mood euthymic. Thoughts linear, logical, no signs of hallucinations or delusions. Client Response/Progress/Benefit: []Client engaged during activity and provided ideas on how to cope with internal barriers that keep clients stuck from moving towards goals. Client able to identify barriers to desired reality. Client reported she wants to work on overcoming barrier of thinking she is a burden to her supports. Client reported she will start to overcome this barrier by having a open, honest conversation with her supports to understand their perspective and challenge her view that she is a burden. Client stated if family does indicate her needs are too much then she stated she will problem solve how to not burn her supports out. Benefited from group by identifying obstacles and solutions to desired reality. Will continue IOP tx to prevent decompensation, continue use of healthy coping skills, and challenge distorted thoughts. Narrative Note: []
--- NOTE | 2021-04-20 09:05 | BH.SGPN.GN ---
Behaviors/Verbalizations/Mental Status: [] Eye contact is good. Motor activity is appropriate. Appearance is neat. Speech is Appropriate. Mood is euthymic. Affect is full. Thoughts are linear and logical. No evidence of psychosis. Reviewed daily check in sheet and no reports of suicidal ideations or intent. Client Response/Progress/Benefit: [] Pt was an active participant in group discussion. Attentive. Emotion for today is hopeful. Shared that the group mental health wins over the weekend which included attending family gatherings and being assertive with a certain family member. Active on Tuesday however lethargic and tired on Tuesday. 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 Guilt with family helping her out with as she is stablizing after recent hosptialiation. Benefited from group encouragment, support, and feedback. Progress noted per pt report. Denies any overhwelming distress over the weekend as from mild depression on Tuesday. Will continue in IOP to maintain gains and prevent decompensation. Plan to discharge this week. Narrative Note: []
--- NOTE | 2021-04-20 10:15 | BH.SGPN.GN ---
Behaviors/Verbalizations/Mental Status: []Client alert and orient. Appearance casual and appropriately groomed. Speech an appropriate rate and tone. Motor activity WNL. Mood euthymic, affect congruent. No evidence of delusion or hallucinations.? Client Response/Progress/Benefit: []Client responded well to session, attentive and contributing to discussion. Group discussed potential barriers to communication including: yelling, name-calling, unmanaged emotions, facial expressions, and shutting down. Helped group identified positives of having effective communication skills. Client reported using healthy communication can help deepen connections within relationships. Attentive during psychoeducation on the four communication styles. Client reported she most often uses passive-aggressive communication style. Able to recognize negative outcomes of communication style. Seemed to benefit from increased awareness of the different communication styles and identify personal communication style. Client to continue IOP to maintain gains and prevent decompensation.
--- NOTE | 2021-04-20 11:18 | BH.SGPN.GN ---
Behaviors/Verbalizations/Mental Status: []Client alert and oriented, casually dressed and groomed. Eye contact good. Motor activity appropriate. Speech within normal limits. Affect congruent, mood dysthymic. Thoughts linear, logical, no signs of hallucinations or delusions. Client Response/Progress/Benefit: []Client engaged participant AEB attentiveness during discussion, taking notes, and providing input throughout. Client reported she is mostly a passive-aggressive communicator which causes negative consequences on her relationships and mental health. Client stated she often side steps or expects her supports to ?mind-read? thoughts and feelings in which results in her getting angry when they don?t. Attentive during psychoeducation about DEAR MAN (Describe, Express, Assert, Reinforce, Mindfulness, Appear confident, Negotiate) interpersonal communication skill. Client identified her communication goal is to improve assertiveness by focusing on the skill of Assert by expressing more clearly to others what she needs. Client seemed to benefit from increased insight into how her communication style impacts her mental health and relationships. Client progressing as shown by improved mood stability and reporting increased use of healthy coping skills. Will continue IOP tx to maintain gains, continue setting healthy boundaries and prevent decompensation. Narrative Note: []
--- NOTE | 2021-04-21 09:05 | BH.SGPN.GN ---
Behaviors/Verbalizations/Mental Status: [] Eye contact is good. Motor activity is appropriate. Appearance is neat. Speech is Appropriate. Mood is anxious. Affect is congruent. Thoughts are linear and logical. No evidence of psychosis. Reviewed daily check in sheet and no reports of suicidal ideations or intent. Client Response/Progress/Benefit: [] Pt was an active participant in group discussion. Attentive. Mental health win was completing goals of completing tasks around the house. Increase time spent with family planned today which she is looking forward too. Feeling more inspired. Shared that she will often have guilt over being tired and not being able to complete tasks. Insight regarding the importance of rest with her Bipolar dx. Overall she reports managing her mood and stressors better than in the past. No overwhelming symptoms. Progress noted per pt report. Benefited from group support, encouragement, and feedback Will continue in IOP to maintain gains with plan to discharge tomorrow. Narrative Note: []
--- NOTE | 2021-04-21 11:13 | BH.SGPN.GN ---
Behaviors/Verbalizations/Mental Status: []Eye contact is good. Motor activity is appropriate. Appearance is casual. Speech is Appropriate. Mood is euthymic. Affect is congruent. Thoughts are linear and logical. No evidence of psychosis. Client Response/Progress/Benefit: []Pt was an active participant AEB attentiveness, and provided input during discussion, and participation in activity. Contributed to group discussion on benefits and examples of healthily social supports. Client shared, ?Supports are essential if we are alive. They help us to function better. They help make us become better versions of ourselves by calling us out or encourage us, help us celebrate our wins.?. Group noted benefits of strong social supports as: provides encouragement, hold us accountable, different perspective, and tangible resources. Client attentive throughout discussion on barriers to using support system. Able to see the impact of support and its benefits during activity and challenges of accomplishing tasks w/o proper support. Benefited from awareness of barriers to support as well as importance of support in mental health wellness. Will continue IOP tx to continue to maintain gains, continue to promote healthy change behaviors, and prevent decompensation. Narrative Note: []
--- NOTE | 2021-04-22 07:57 | BH.IGGP_ITS ---
Aftercare Plan - Demographics Treatment End Date:: 04/22/21 Psychiatrist:: Kristen Lucas Psychiatrist Office #:: [phone] [facility] Therapist:: Zofia Garces Therapist Phone #:: [phone] - Plan Details Progress/Aftercare Plan Details:: Erin has made significant strides since starting IOP as shown by her reduced symptoms, increased self-awareness, and overall improved ability to manage emotions and advocate for herself. When Erin started IOP she was struggling with mood instability, people pleasing, negative thinking, and difficulty setting boundaries. Now, Erin is actively using healthy coping skills, setting more boundaries, using the awareness she has gained to manage her emotions, and practicing self-reflection on a daily basis. Erin contributed to group discussions, offered emotional support to peers, and consistently followed through with her goals. In individual sessions, Erin was receptive to feedback, consistent with homework, and willing to push herself. Erin showed resilience each day she came to [facility] and was very receptive to learning. Erin?s DSM-5 scores decreased overall by 67%, layla symptoms decreased by 100%, anxiety decreased by 100%, and not feeling detached or distant from self/surroundings decreased by 100%. Erin will follow up with Naina at [facility], call [facility] for psychiatric services, and attend [facility] aftercare group. Strategies for Success:: 1. Continue journaling! Remember you are deserving of self-care time. 2. Continue exercising. You have been doing great with walking! 3. Reflect on your notes and previous journal entries to remind yourself of insights and skills. 4. No is a complete sentence. You deserve boundaries just as much as anyone else does. It's okay to say you can't do something, even if you don't have another obligation. 5. Challenge negative thoughts as they come and remember to practice self-compassion! 6. Use positive self-talk and remind yourself that you are a good mom, , daughter, person, and friend. 7. Use calming skills when you feel irritable or on edge. 8. Give yourself credit! You are awesome! - Appointments Appointments/Referrals to Other Services:: 1. Continue with Naina at [facility]. 2. Continue with Rod Benjamin at [facility] or call [facility]. 3. Follow up with IOP aftercare starting on 04/30/21 from 2-3:30pm - Medications Home Medications: Home Medications thyroid (pork) 60 mg PO DAILY 02/23/21 aripiprazole [Abilify] 15 mg PO QHS 03/11/21 melatonin 3 mg PO QHS PRN PRN 03/11/21 metoprolol tartrate 50 mg PO BID 03/11/21
--- NOTE | 2021-04-22 09:05 | BH.SGPN.GN ---
Behaviors/Verbalizations/Mental Status: []Client alert and oriented, neatly dressed and groomed. Eye contact good. Motor activity appropriate. Speech within normal limits. Affect congruent, mood anxious.. Thoughts linear, logical, no signs of hallucinations or delusions. Reviewed client?s symptom tracker, no risk for suicidal ideation, plan, or intent as of 04/22/21 Client Response/Progress/Benefit: C[]Client responded well to session, receptive to feedback and encouragement. Client's last day of IOP today and client reports it is bittersweet. Client shared she wants to be excited today, but client had a stressful day yesterday and client still feels stressed this morning. Client has been functioning much better since admission and client was able to acknowledge progress in her emotional regulation. Client has also been more physically active since admission. Appeared to benefit from reflecting on gains and processing current emotions. Will discharge from IOP today as client has accomplished her tx goals and no longer meets criteria for IOP level of care. Narrative Note: []
--- NOTE | 2021-04-22 11:16 | BH.SGPN.GN ---
Behaviors/Verbalizations/Mental Status: []Client alert and oriented, casually dressed and groomed. Eye contact good. Motor activity appropriate. Speech within normal limits. Affect congruent, mood euthymic. Thoughts linear, logical, no signs of hallucinations or delusions. Client Response/Progress/Benefit: []Client was an active participant in group discussion and providing good insight to peers. Reviewed safety behaviors she engages in that reinforce anxiety. Attentive during psychoeducation on mindfulness coping skills and their impact on mental health wellness. The group worked together to brainstorm anxiety reduction strategies. Client shared she is willing to practice the following coping skills for anxiety: breathing techniques, journaling, and hot bath. Client seemed to benefit from increased repertoire of anxiety reduction skills. Client has made signficant treatment progress and will discharge from [facility] today.
--- NOTE | 2021-04-22 14:44 | BH.MDN ---
Multi-Disciplinary Note - Note 45-min Individual Time Started:: 10:20 Date: 04/22/21 Purpose of session/treatment goals addressed:: The purpose of this session was to review client's progress and review strategies that will promote mood stability and gains made in IOP. Another goal was to discuss discharge recommendations and process any current stressors. Eye Contact:: Good Motor Activity:: Appropriate Appearance:: Neat Speech:: Rambling Mood:: Anxious Affect:: Congruent Thoughts:: Linear, Logical, No evidence of hallucinations/delusions noted Staff Interventions:: Therapist used open-ended questions to explore client's thoughts on personal progress. Therapist also provided emotional support and helped client process current stressors. Therapist reviewed supports and coping skills with client to promote gains and prevent setbacks. Therapist discussed aftercare plan with client and used strengths-perspective to empower client on the goals client has accomplished. Therapist discussed the benefits of ongoing maintenance and use of daily coping skills. Therapist gave client a quote collage for closure. Client Response:: Client responded well to session, reporting today is bittersweet with it being client's last day of IOP. Client shared she has been feeling a little down this week due to having a lot of family plans, but client is not worried about this. Client stated being in IOP has helped client catch warning signs and use healthy coping skills to bounce back. 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 Client looks forward to getting back into this as it is her create outlet. Client states having some mom guilt about taking time away from her children to record music, but client was able to challenge this. Reviewed healthy coping skills such as boundary setting, self-care, journaling, talking with supports, walking, and communicating needs. Client reports progress in reduced irritability in addition to improved ability to cope with stress. Risks/Concerns:: Client denies any suicidal ideations, plan, or intent as of 04/22/21. Future oriented. No report of psychosis. Progress Toward Goals/Plan:: Client will discharge from [facility] today as she has accomplished her [place] goals and no longer meets criteria for [facility] level of care. Client's DSM,-5 scores decreased overall by 67%, layla symptoms decreased by 100%, anxiety decreased by 100%, and not feeling detached or distant from self/surroundings decreased by 100%. Client will continue with outpatient counseling and psychiatry. Client will also attend [facility] aftercare starting 04/30/21. Time Stopped:: 11:10
--- NOTE | 2021-04-22 14:45 | BH.DS_ITS ---
Discharge Summary - Demographics Date of Admission:: 03/09/21 Discharge Date: 04/22/21 Presenting Problems at Admission:: Client is a 35-year-old female with a history of Bipolar disorder, social anxiety, and depression. Client was admitted to [facility] from 02/24/21-03/02/21 due to disorganized thoughts, hallucinations, christianity preoccupation, and delusions. History of post- psychosis with a previous admission for similar symptoms after her first . Prior to admission, client was running outside naked with her child as client believed her was trying to kill her and was religiously preoccupied. Per 's report, client's symptoms started around 02/12/21 and got progressively worse. Since admission, client's symptoms have stabilized AEB no signs of disorganized speech, hallucinations or delusions. At admission to [facility], client continued to report significant anxiety, guilt, obsessive thoughts, and ruminations. Discharge Diagnoses:: Bipolar 1 disorder, manic, severe with psychotic features (resolving)F 31.21; social anxiety disorder; PTSD Reason for Discharge:: Client has accomplished her tx goals AEB her decreased DSM-5 symptoms and self-report of improved mood stability. Client no longer meets criteria for [facility] level of care and will transition to outpatient counseling and [facility] aftercare. - Treatment Progress During Treatment & Response: Client has made significant strides since starting [facility] as shown by her reduced symptoms, increased self-awareness, and overall improved ability to manage emotions and advocate for herself. When Clien t started IOP she was struggling with mood instability, people pleasing, guilt, negative thinking, and difficulty setting boundaries. Now, Client is actively using healthy coping skills, setting more boundaries, using the awareness she has gained to manage her emotions, and practicing self-reflection on a daily basis. Client contributed to group discussions, offered emotional support to peers, and consistently followed through with her goals. In individual sessions, Client was receptive to feedback, consistent with homework, and willing to push herself. Client showed resilience each day she came to [facility] and was very receptive to learning. Client?s DSM-5 scores decreased overall by 67%, layla symptoms decreased by 100%, anxiety decreased by 100%, and feeling detached or distant from self/surroundings decreased by 100%. Issues Still to be Addressed:: Client can continue to benefit from outpatient counseling to reinforce healthy coping skills and further improve self- confidence. Client has been working on setting healthy boundaries, asserting her needs and emotions, regulating anxiety and anger, and challenging negative thinking patterns. Client may benefit from trauma therapy in the future. Discharge Recommendations/Instructions:: Client plans to follow up with her outpatient counselor, Naina, at [facility]. Client has been seeing Rod Alexander at [facility] for medication management, but requested information for psychiatry closer to her home. Client plans to schedule at [facility] for medication management in the future. Discharge Handout: Complete Discharge Handout with client on aftercare options and continuity of care.
== END 2021-04-22 14:09 | disposition home or self-care (01) ==
LOC: BHIOP 09:00
PROVIDERS: Referring Provider Psychiatry & Neurology Psychiatry; Visit Provider Psychiatry & Neurology Psychiatry
DX: F31.2 Bipolar disorder, current episode manic severe with psychotic features (principal); F41.8 Other specified anxiety disorders; F43.10 Post-traumatic stress disorder, unspecified; Z79.899 Other long term (current) drug therapy
CPT/HCPCS: S9480; 90834; 90837; 90853

== ENCOUNTER 2021-04-30 09:00 | Outpatient (RCR) | payer BC, SELFPAY ==
--- NOTE | 2021-04-30 13:53 | BH.MTP ---
Master Treatment Plan - Patient Information Program Physician:: Dr. Kristen Lucas Primary Therapist:: Zofia VILLARREAL - Psychiatric Diagnoses Psychiatric Diagnoses:: Bipolar 1 disorder, manic, severe with psychotic features (resolving)F ; social anxiety disorder; PTSD Diagnosis Code(s):: F - Estimated LOS Estimated LOS (in weeks):: 12 Problem/Goal #1 - Problem/Goal #1 Stated Goal:: lient will maintain or see a reduction in symptoms AEB client score on the DSM 5 cross-cutting measure and improve client's daily functioning. - Objectives Objective #1 Stated Objective: Client will continue to consistently apply healthy coping skills to maintain progress made in IOP tx. Interventions: Through group therapy, client will review warning signs and triggers as well as healthy coping skills learned in IOP tx to successfully maintain gains while transitioning into outpatient therapy. Discharge Criteria: Client will have accomplished this goal when client's score on the DSM-5 cross-cutting measure has either maintained or reduced over a 12 week period. Target Date: 07/23/21 Review Date: 05/28/21 Status: open Objective #2 Stated Objective: Client will learn and utilize 2-3 maintenance strategies to prevent decompensation. Interventions: Through group therapy, client will be provided with education on healthy maintenance behaviors, relapse prevention techniques, and healthy coping strategies. Discharge Criteria: Client will have accomplished this goal when can report using at least 2 maintenance skills to prevent decompensation. Target Date: 07/23/21 Review Date: 05/28/21 Status: open
--- NOTE | 2021-04-30 14:00 | BH.SGPN.GN ---
Behaviors/Verbalizations/Mental Status: [] Client alert and oriented, casually dressed and groomed. Eye contact good. Motor activity appropriate. Speech within normal limits. Affect congruent, mood euthymic. Thoughts linear, logical, no signs of hallucinations or delusions. Client Response/Progress/Benefit: [] Client receptive of session as evidenced by remaining attentive, taking notes and providing some input throughout discussion. Client reflected on progress and stated she is feeling excited about being in the Aftercare program now that she has completed IOP tx. Discussed having a ?bad day? the night before but did well to not focus on the stressors and instead label it as an ?off day?. Noted challenging herself to take a walk and try to remain present when with her family which had been helpful. Client appeared to connect well with group discussion on the importance of self-reflection and the associated mental health benefits. Worked with group to review barriers to consistent personal reflection and strategies for better incorporating self-reflection into daily life. Client noted plans to incorporate the GLAD technique to better reflect upon the positives each day. Expressed this will help to improve overall perspective and challenge negative thoughts. Client recommended continued participation in Aftercare program to further support ongoing mood stability and maintain gains made. Narrative Note: []
--- NOTE | 2021-05-07 14:00 | BH.SGPN.GN ---
Behaviors/Verbalizations/Mental Status: []Client alert and oriented, casual dress, hygiene tended to. Eye contact good. Motor activity appropriate. Speech within normal limits. Affect congruent, mood euthymic. Thoughts linear, logical, no signs of hallucinations or delusions. Client Response/Progress/Benefit: []Client responded well to session, receptive to feedback and sharing supportive statements to peers. Client reported mental health positives as taking a relaxing drive last night and starting to feel more fulfilled by being a mother. Client stated stressor is feeling uncertain about her future which has caused some anxious thoughts. Client participated in the group discussion of maintenance and the benefits of creating a maintenance plan. Client contributed as the group discussed what components make up a maintenance plan. Client created own mental health maintenance plan. Client identified warning signs which included: ruminations, comfort zone, and jumping from one project to the next. Client's coping skills included: relaxation, journaling, goal setting, and communicating with therapist. Appeared to benefit from creating a maintenance plan to promote gains and prevent setbacks. Will continue aftercare next week. Narrative Note: []
--- NOTE | 2021-05-14 14:00 | BH.SGPN.GN ---
Behaviors/Verbalizations/Mental Status: []Client alert and oriented, casual appearance. Eye contact good. Motor activity appropriate. Speech within normal limits. Affect congruent, mood euthymic. Thoughts linear, logical, no signs of hallucinations or delusions. Client Response/Progress/Benefit: []Pt responded well to session AEB pt openly sharing thoughts and feelings and completing worksheet. Pt shared she has been working on her goal of practicing healthy coping skills. Pt identified mental health positive as journaling using the GLAD acronym. Pt stated she was a little stressed over weekend but after communicating with her psychiatrist some concerns she left much better. Pt responded well to group discussion and review about self-care. Pt stated she will work on following self-care activities: bubble bath, walking, spending time with kids, laugh, and cuddle puppy. Pt seemed to benefit from support from peers and identifying self-care plan. Pt to continue aftercare to prevent decompensation and continue consistent practice of healthy coping skills.
--- NOTE | 2021-05-21 14:00 | BH.SGPN.GN ---
Behaviors/Verbalizations/Mental Status: []Client alert and oriented, neat and casually dressed and groomed. Eye contact good. Motor activity appropriate. Speech within normal limits. Affect congruent, mood anxious and euthymic. Thoughts linear, logical, no signs of hallucinations or delusions. Client Response/Progress/Benefit: []Client responded well to session, provided input, and listened attentively to peers. Reported feeling ?determined? today as client has been working with a new therapist who commended client on progress she has made since completing the IOP program. Identified areas of continued progress to include: sitting with the uncomfortable, communicating with her more, positive self-talk, and getting back into her music. Noted current stressor is her dog as it has been getting more aggressive in how it plays with her children. Discussed plans to address with her this evening. Client engaged in discussion on self-advocacy. Worked with group to identify the benefits of self-advocacy, as well as common barriers. Reviewed the personal bill of rights and shared belief that she has the right to ?choose my own priorities?. Worked with group to identify strategies to increase ability to advocate for oneself. Reported she wants to work on advocating for herself by reminding herself that she has the right to ?make mistakes and not be perfect?. Noted plans to take steps in practicing this by challenging herself to use more self-compassionate language. Client seemed to benefit from reviewing treatment progress and skill application, as well as learning about how to increase self-advocacy. Client to continue aftercare to promote gains, prevent regression, and further improve functioning. Narrative Note: []
--- NOTE | 2021-05-28 14:00 | BH.SGPN.GN ---
Behaviors/Verbalizations/Mental Status: []Eye contact is good. Motor activity is appropriate. Appearance is casual. Speech is Appropriate. Mood is content. Affect is congruent. Thoughts are linear and logical. No evidence of psychosis. Client Response/Progress/Benefit: []Client responded well to session, client reports her mood has improved over the last few days. Client shared over the weekend she had a ?crappy day of comparing myself to others.? Client shared she was able to bounce back from this using mindfulness, exercise, and reaching out to supports. Client engaged well during the discussion of the components of self-compassion. Client connected with the benefits of self-compassion and participated in the activity of reframing a recent setback using self-compassion. Client used her recent ?crappy day? and used self-compassion to accept and be kind to herself rather than circuit court judge herself for not feeling ?positive? all the time. Client appeared to benefit from practicing self-compassion and connecting with peers. Will continue aftercare to promote mood stability and reinforce healthy coping skills. Narrative Note: []
== END 2021-05-30 23:59 ==
LOC: BHOG 09:00
PROVIDERS: Referring Provider Psychiatry & Neurology Psychiatry; Visit Provider Psychiatry & Neurology Psychiatry
DX: F31.2 Bipolar disorder, current episode manic severe with psychotic features (principal); F41.8 Other specified anxiety disorders; F43.10 Post-traumatic stress disorder, unspecified
CPT/HCPCS: 90853

== ENCOUNTER 2021-06-04 10:23 | Outpatient (RCR) | payer BC, SELFPAY ==
--- NOTE | 2021-06-04 14:00 | BH.SGPN.GN ---
Behaviors/Verbalizations/Mental Status: []Client alert and oriented, casually dressed and groomed. Eye contact good. Motor activity appropriate. Speech within normal limits. Affect congruent. Mood euthymic. Thoughts linear, logical, no signs of hallucinations or delusions. Client Response/Progress/Benefit: [] Client responded well to session AEB sharing thoughts and feelings and listening attentively to peers. Client reported he is feeling ?exhilarated today and discussed this is related to taking a lot of time for personal reflection and self-care over the week. Shared she had been struggling with feeling a little down over the weekend but allowed herself some justo and took steps to go for a walk as well as listen to music. Client shared that today is the anniversary of her grandmother?s which has been hard but that she has also been very intentional about self-care and taking time to practice gratitude for the memories they have together. Continues to make progress in addressing and better managing her emotions. Client contributed to the discussion on gratitude and its benefits. Client attentive during discussion of internal vs. external gratitude. Client created weekly plan on how she will practice gratitude over the next 7 days. Appeared to benefit from connecting with peers and creating plan to identify gratitude. 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 Will continue IOP aftercare to continue use of healthy coping skills, challenge distorted thoughts and maintain gains made. Narrative Note: []
--- NOTE | 2021-06-11 14:00 | BH.SGPN.GN ---
Behaviors/Verbalizations/Mental Status: []Client alert and oriented, casually dressed and groomed. Eye contact good. Motor activity appropriate. Speech within normal limits. Mood content. Affect constricted. Thoughts linear, logical, no signs of hallucinations or delusions. Client Response/Progress/Benefit: []Client responded well to session, reports feeling ?grateful? today and shared she had a good vacation with her family, even though there were difficult moments. Client stated she used opposite action on vacation and took time for self-care when she got home. Contributing during discussion of vulnerability and benefits of practicing vulnerability. Shared personal experience of how being vulnerable about her post- psychosis and depression has improved client?s relationship with her family. Discussed ways we avoid feeling vulnerable and how this negatively affects mental health and relationships. Client shared she wants to more vulnerable with other mothers about the ?not perfect? moments of parenting rather than ?only sharing the highlight reel.? Appeared to benefit from reflecting on the positive impact vulnerability can have on mental health. Will continue IOP aftercare to promote gains and reinforce healthy coping skills. Narrative Note: []
--- NOTE | 2021-06-18 14:00 | BH.SGPN.GN ---
Behaviors/Verbalizations/Mental Status: []Client alert and oriented, casually dressed and groomed. Eye contact good. Motor activity appropriate. Speech within normal limits. Affect congruent. Mood euthymic. Thoughts linear, logical, no signs of hallucinations or delusions. Client Response/Progress/Benefit: []Client responded well to session AEB sharing thoughts and feelings and listening attentively to peers. Client reported feeling ?optimistic today as she has been working to identify positives despite some recent stressors. Described challenging her initial catastrophizing and negative thoughts about receiving news of an injury that will put her progress towards running further behind. Noted that she initially became very upset but with help from supports has been looking at the positives of still being able to exercise. Client reflected on additional skills she has been utilizing over the past week which included: talking to friends, pro/con list, walking, and spending time journaling. Benefited from reflecting on areas in which he continues to progress, as well as encouragement provided by the group as well. Client contributed to the discussion on mindfulness and it?s mental, physical, and interpersonal benefits. Client attentive during discussion reviewing and demonstrating various mindfulness practices. Created weekly plan on how client will practice mindfulness over the next 7 days. Appeared to benefit from connecting with peers and creating plan to improve ability to be present. Pt plan included: practicing mindful self-compassion, cooking, explain a task and then participate in it, look through a different window in her house, and singing. Will continue IOP aftercare to continue use of healthy coping skills, challenge distorted thoughts and maintain gains made. Narrative Note: []
--- NOTE | 2021-06-25 14:00 | BH.SGPN.GN ---
Behaviors/Verbalizations/Mental Status: []Client alert and oriented, neatly dressed and groomed. Eye contact good. Motor activity appropriate. Speech within normal limits. Affect congruent, mood euthymic. Thoughts linear, logical, no signs of hallucinations or delusions. Client Response/Progress/Benefit: []Pt responded well to session, attentive and taking notes. Pt reports feeling ?appreciative? today and shared she completed her daily mindfulness goals from last week. Pt shared she had some ?highlights and lows? this week, but pt feels like she is working through tough moments better. Pt worked cooperatively with group to identify benefits of having a daily routine which included: sense of accomplishment, increased motivation, and mental health maintenance. Pt engaged in brainstorming of various daily routine ideas. Pt completed task of creating a daily routine focusing on connecting with friends, cleaning, and scheduled alone time as well as identified a supportive mantra. Pt shared a copy of her routine and shared her mantra of ?no negative thoughts will take root in my mind.? Pt seemed to benefit from support from peers and learning about benefits of routine. Pt to continue aftercare group to improve consistent use of healthy coping, maintain gains, and prevent decompensation. Narrative Note: []
--- NOTE | 2021-06-25 14:29 | BH.TPR ---
Treatment Plan Review Date of Admission:: 04/30/21 Date of Treatment Plan Review:: 06/25/21 Admitting Diagnoses:: Bipolar 1 disorder, manic, severe with psychotic features (resolving)F 31.21; social anxiety disorder; PTSD Current Diagnoses:: Bipolar 1 disorder, manic, severe with psychotic features (resolving)F 31.21; social anxiety disorder; PTSD Patient's Response to Treatment:: Client is engaged in IOP aftercare as evidenced by client's participation in group discussions, self-report of consistently applying coping skills, and self-report of improved mood stability. Client is an active group member and she consistently follows up with outpatient counseling. Status of Current Problems and Symptoms: Client continues to experience mild symptoms of depression and anxiety per her DSM-5. Client's anxiety went up by two points since her IOP discharge. Client also reports stressors with raising her children, mom guilt, exploring employment, and balancing self-care. Client reports ability to catch early warning signs and she reports she has been using coping skills consistently. Problem #1 Problem Name:: Pt will maintain or see a reduction in mental health symptoms Status of Goals:: Objective 1- partially complete. Client?s DSM-5 scores have slightly increased since admission to aftercare. Client?s depression remains the same, but anxiety has gone up by two points. Client?s scores are still within the mild range of severity. Objective 2- complete with ongoing work encouraged. Client has been consistently reporting use of journaling, singing and song writing, walking, and grounding techniques. Team Recommendations:: Team recommends pt continue IOP aftercare group in addition to attending regular outpatient counseling in order to decrease depressive and anxious symptoms as well as promote further gains.
== END 2021-06-30 23:59 ==
LOC: BHOG 10:23
PROVIDERS: Referring Provider Psychiatry & Neurology Psychiatry; Visit Provider Psychiatry & Neurology Psychiatry
DX: F31.2 Bipolar disorder, current episode manic severe with psychotic features (principal); F41.8 Other specified anxiety disorders; F43.10 Post-traumatic stress disorder, unspecified
CPT/HCPCS: 90853

== ENCOUNTER 2021-07-02 09:59 | Outpatient (RCR) | payer BC, SELFPAY ==
[2021-07-01 00:38] VITALS: BMI 31.4
--- NOTE | 2021-07-02 14:00 | BH.SGPN.GN ---
Behaviors/Verbalizations/Mental Status: []Client alert and oriented, casually dressed and groomed. Eye contact good. Motor activity appropriate. Speech within normal limits. Affect congruent, mood euthymic and positive. Thoughts linear, logical, no signs of hallucinations or delusions. Client Response/Progress/Benefit: []Pt responded well to session AEB pt contributing during discussion and listening attentively to others. Pt stated she is starting a medication change due to the belief her medications are making her tired, sleepy, groggy and checking out. Pt reported slowly starting to wean off one of her medications and will be starting a new medication next week. Pt recognizes needs to be aware of symptoms throughout this medication change. Pt identified positives as going on the elliptical and family life continuing to be good. Pt engaged in discussion about healthy decision making. Pt stated wanting to work on making healthy decisions with relationships and mental health. Pt reported she will focus on scheduling time with friends to improve relationships. Pt stated for her mental health she is going to start journaling more consistently, eat a healthy dinner and exercise two times in the next week. Pt seemed to benefit from identifying healthy choices she can make in at least one area of her life. pt to continue aftercare to maintain gains and prevent decompensation. Narrative Note: []
--- NOTE | 2021-07-23 14:00 | BH.SGPN.GN ---
Behaviors/Verbalizations/Mental Status: []Client alert and oriented, neatly dressed. Eye contact good. Motor activity appropriate. Speech within normal limits. Affect full, mood euthymic. Thoughts linear, logical, no signs of hallucinations or delusions. Client Response/Progress/Benefit: []Pt responded well to session AEB pt providing input during discussion and listening attentively to peers. Pt reported feeling ?motivated? today as client feels ready to discharge from aftercare and take on the future. 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 Pt engaged in discussion about self-love. Connected with others that although self-care is challenging, it is vital for mental health wellness. Group discussed barriers they have faced that prevented self-love. Pt reviewed the 30 ways to improve self-love and selected two strategies to practice. Pt seemed to benefit from reviewing treatment progress and stressors as well as learning about how to increase self-love. Pt will discharge from aftercare today as she has accomplished her tx goals and will continue with outpatient counseling. Narrative Note: []
--- NOTE | 2021-07-23 15:15 | BH.DS_ITS ---
Discharge Summary - Demographics Date of Admission:: 04/30/21 Discharge Date: 07/23/21 Presenting Problems at Admission:: Client discharged from IOP tx and transitioned to IOP aftercare to maintain gains client made in IOP and to reinforce healthy coping skills. At admission to IOP aftercare, client reported experiencing no symptoms of layla or anxiety, but client was still experiencing mild depressive symptoms and slight irritability. However, client has history of mood instability and IOP aftercare was beneficial to monitor and promote maintenance. Client also had several stressors such as raising young children and setting boundaries with family. Discharge Diagnoses:: Bipolar 1 disorder, manic, severe with psychotic features (resolving)F 31.21; social anxiety disorder; PTSD Reason for Discharge:: Client has accomplished her tx goals AEB her ability to maintain mood stability and gains made in IOP. Client will transition to traditional outpatient counseling. - Treatment Progress During Treatment & Response: Client responded well and made progress in IOP aftercare as evidenced by client's participation in group discussions and self-report of consistently applying coping skills. Client's overall DSM-5 scores decreased by 67% more after completing aftercare. Client?s depression decreased by 100% since IOP discharge which is significant. Additionally, at discharge client was reporting an improved mood, more positive thinking patterns, consistent use of healthy coping skills, and increased physical activity. Issues Still to be Addressed:: Client can benefit from ongoing outpatient counseling and medication management to promote gains and reinforce healthy coping skills. Client can continue to work on thought challenging, boundary setting, self-compassion, being vulnerable to increase support, and self- advocacy. Additionally, client can benefit from finding activities that give her more structure throughout her day and allow client to connect with other adults. Discharge Recommendations/Instructions:: Client will continue seeing her outpatient counselor and psychiatrist to promote gains. Discharge Handout: Complete Discharge Handout with client on aftercare options and continuity of care.
== END 2021-07-24 08:34 | disposition home or self-care (01) ==
LOC: BHOG 09:59
PROVIDERS: Referring Provider Psychiatry & Neurology Psychiatry; Visit Provider Psychiatry & Neurology Psychiatry
DX: F31.13 Bipolar disorder, current episode manic without psychotic features, severe (principal); F41.8 Other specified anxiety disorders; F43.10 Post-traumatic stress disorder, unspecified
CPT/HCPCS: 90853